=== PATIENT | male | born 1970 | race Caucasian/White ===

== ENCOUNTER 2022-08-01 08:32 | Outpatient (CLI) | payer BC, SELFPAY ==
--- NOTE | ~2022-08-01 | US_ITS ---
Abdominal Sonogram: Real-time sonographic imaging of the abdomen was performed. Clinical History: Abnormal blood chemistry findings Findings: The liver appears mildly echogenic, with no evidence of bile duct dilatation. There is a s omewhat ill-defined 3.1 x 2.9 x 3.1 cm hypoechoic area in the right hepatic lobe. Main portal vein de monstrates normal direction of flow. The spleen is normal in size without evidence of focal lesion. The gallbladder is well distended, and appears normal with no evidence of gallstone or wall thickenin g. The common bile duct measures 5 mm. The visualized pancreas, aorta, and IVC are unremarkable. Th e right kidney measures 11.0 cm in length and the left kidney measures 11.8 cm. There is no hydronep hrosis or renal calculus. Impression: Diffuse fatty infiltration of liver. 3 x 1 x 2.9 x 3.1 cm hypoechoic area probably represents fatty s paring. Pre and postcontrast MR could be considered to further confirm/better exclude mass lesion. Reviewed, dictated and finalized at location . Impression: Diffuse fatty infiltration of liver. 3 x 1 x 2.9 x 3.1 cm hypoechoic area proba nyasia represents fatty sparing. Pre and postcontrast MR could be considered to fu rther confirm/better exclude mass lesion.
== END 2022-08-01 08:33 | disposition home or self-care (01) ==
PROVIDERS: PCP Family Medicine; Visit Provider Physician Assistant Medical
DX: R79.89 Other specified abnormal findings of blood chemistry (principal); K76.0 Fatty (change of) liver, not elsewhere classified
CPT/HCPCS: 76700

== ENCOUNTER 2023-03-06 07:00 | Outpatient (NON) | payer BC, SELFPAY | END 2023-03-06 07:01 | disposition home or self-care (01) | LOC: ANHLAB 03-07 15:56 | PROVIDERS: PCP Family Medicine; Visit Provider Nurse Practitioner | DX: D22.5 Melanocytic nevi of trunk (principal) | CPT/HCPCS: 88305 ==

== ENCOUNTER 2024-03-29 | Emergency (ER) | payer OTHER, SELFPAY ==
[2024-03-29] VITALS (9 sets, daily range): BP systolic 119–153; BP diastolic 79–100; PULSE 66–94; RESP 13–20; TEMP 36.4–36.8; O2SAT 93–100
--- NOTE | ~2024-03-29 | US_ITS ---
EXAMINATION: US abdomen limited DATE: 03/29/2024 07:16 INDICATION: Abdominal pain. TECHNIQUE: Multiple grayscale and Doppler ultrasound images of the abdomen were obtained. COMPARISON: CT abdomen and pelvis 03/29/2024 FINDINGS: The visualized portions of the head and body of the pancreas are normal. There is diffuse h epatic steatosis. The gallbladder is normal in size and contains sludge. Gallbladder wall thickening is noted. There is no sonographic Villalobos's sign. The common duct is normal and measures 4 mm. IMPRESSION: 1. Normal-sized gallbladder with sludge, stone (seen by CT), and wall thickening, but no sonographic Villalobos's sign. These findings may be chronic cholecystitis. 2. Diffuse hepatic steatosis. Reviewed, dictated and finalized at location A. TANNER IMPRESSION: 1. Normal-sized gallbladder with sludge, stone (seen by CT), and wall thickenin g, but no sonographic Villalobos's sign. These findings may be chronic cholecystiti s. 2. Diffuse hepatic steatosis.
--- NOTE | ~2024-03-29 | CT_ITS ---
EXAMINATION: CT abdomen pelvis w con DATE: 03/29/2024 02:57 INDICATION: Abdominal pain. TECHNIQUE: Computed tomography (CT) of the abdomen and pelvis was performed with 100 mL Omnipaque 350 intravenous contrast. Automated exposure control and iterative reconstruction technique were employe d. The dose-length product was 863.95 mGy-cm. COMPARISON: Abdomen ultrasound 08/01/2022 FINDINGS: The visualized portions of the lung bases demonstrate mild atelectasis. No pleural effusion . The heart size is normal. No pericardial effusion. There is diffuse hepatic steatosis. There is a g allstone in the gallbladder, which is distended. The spleen, pancreas, adrenal glands, and kidneys ar e normal. The prostate is mildly enlarged. There is a left inguinal hernia containing fat. There is d iverticulosis of the colon without evidence of diverticulitis. There are changes of right hemicolecto my. There are no pathologically enlarged lymph nodes. There is no free intraperitoneal fluid. There i s a supraumbilical ventral hernia containing fat. There is mild lumbar spondylosis. IMPRESSION: 1. Distended gallbladder with gallstone suspicious for acute cholecystitis. 2. Diffuse hepatic steatosis. 3. Supraumbilical ventral hernia containing fat. 4. Left inguinal hernia containing fat. Reviewed, dictated and finalized at location A. DLE SANDER
[2024-03-29 01:30] LABS: Basophils Absolute Auto 0.1 K/mm3 (0.0-0.1); Basophils Percent Auto 0.3 % (0.2-1.2); Eosinophils Absolute Auto 0.2 K/mm3 (0-0.3); Eosinophils Percent Auto 1.2 % (0-4.4); Hematocrit 44.5 % (42.0-52.0); Hemoglobin 15.8 g/dL (14.0-18.0); Immature Granulocyte Absolute 0.06 K/mm3 (0.00-0.031); Immature Granulocyte Percent A 0.4 % (0-0.5); Lymphocytes Absolute Auto 1.54 K/mm3 (0.9-3.2); Lymphocytes Percent Auto 10.6 % (18.3-44.2); Mean Corpuscular HGB Conc 35.5 g/dl (32-36); Mean Corpuscular Hemoglobin 32.2 pg (26-34); Mean Corpuscular Volume 90.6 fl (80-100); Mean Platelet Volume 10.2 fl (7.4-10.4); Monocytes Absolute Auto 0.8 K/mm3 (0.1-0.6); Monocytes Percent Auto 5.8 % (2.6-8.5); Neutrophils Absolute Auto 11.8 K/mm3 (1.3-6.7); Neutrophils Percent Auto 81.7 % (45.5-73.1); Platelet Count Result 214 k/mm3 (150-375); Red Blood Count 4.91 M/mm3 (4.6-6.20); Red Cell Distribution Width 13.1 % (11.5-14.5); White Blood Count 14.5 K/mm3 (4.5-10.0)
[2024-03-29 01:40] LABS: Alanine Aminotransferase 40 U/L (6-50); Albumin Level 4.6 g/dL (3.5-5.1); Alkaline Phosphatase 88 U/L (38-126); Anion Gap 8 mmol/L (4-12); Aspartate Amino Transferase 30 U/L (17-59); Bilirubin,Total 1.4 mg/dL (0.2-1.3); Blood Urea Nitrogen 16 mg/dL (9-20); Calcium 9.6 mg/dL (8.4-10.2); Carbon Dioxide 29 mmol/L (22-30); Chloride 100 mmol/L (98-107); Estimated CRCL calculation 71 ml/min; Estimated Glomerular Filt Rate > 60; Glucose 135 mg/dL (65-110); Lipase 119 U/L (23-300); Potassium 3.7 mmol/L (3.4-5.0); Sodium 137 mmol/L (137-145)
[2024-03-29] MEDS: ONDANSETRON INJ 4 MG/2 ML VIAL IV PUSH (02:26)
[2024-03-29] MEDS: MORPHINE SULFATE (*CRX) 4 MG/ML INJ IV PUSH (02:26)
[2024-03-29] MEDS: SODIUM CHLORIDE 0.9% IV 1,000 ML 999 ML IV CONT (02:26)
[2024-03-29 02:34] LABS: Add Urine Microscopic? NO; Appearance Urine Clear (Clear); Bilirubin Urine Negative (Negative); Blood Urine Negative (Negative); Color Urine Yellow (Yellow); Glucose Urine UA Negative (Negative); Ketones Urine Negative (Negative); Leukocyte Esterase Ur Negative LEU/UL (Negative); Nitrate Urine Negative (Negative); Protein Urine Negative (Negative); Specific Grav Ur 1.015 (1.001-1.035); Urobilinogen Urine 0.2 mg/dL (<2.0); pH Urine 6.5 (5.0-9.0)
--- NOTE | 2024-03-29 03:40 | ED_ITS ---
HPI - General Adult General Chief complaint: Abdominal Pain <Hermes Emanuel MD - Last Filed: 03/29/24 03:41> Stated complaint: abd pain <Hermes Emanuel MD - Last Filed: 03/29/24 03:41> Time Seen by Provider: 03/29/24 02:07 <Hermes Emanuel MD - Last Filed: 03/29/24 03:41> History of Present Illness HPI narrative: patient 53-year-old gentleman who presents emergency department with chief complaint of abdominal pain. Patient reports started having epigastric pain this evening reports that he was concerned since he has had a prior episode of a perforated viscus and had emergency surgery with bowel resection. Patient states that he has had a bowel movement today reports that he has had some nausea <Hermes Emanuel MD - Last Filed: 03/29/24 03:41> Related Data Allergies/adverse reactions: Allergies Allergy/AdvReac Type Severity Reaction Status Date / Time No Known Allergies Allergy Verified 03/29/24 02:03 <Hermes Emanuel MD - Last Filed: 03/29/24 03:41> Review of Systems Review of Systems: A 10 system review of systems was completed on the patient and is negative except for what is stated in the HPI. Nursing and ancillary documentation was reviewed. <Hermes Emanuel MD - Last Filed: 03/29/24 03:41> PMFSH Past Medical History Medical History: Medical History BMI 29.0-29.9,adult BMI 30.0-30.9,adult Cerumen impaction Right otitis media <Hermes Emanuel MD - Last Filed: 03/29/24 03:41> Family History Family History: Family History Mother Family history of lung cancer Lung cancer Father Aortic aneurysm Sibling No problems noted. 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 HEAD: Normocephalic, atraumatic. EYES: PERRLA and EOMI. ENT: Nares clear, no rhinorrhea or epistaxis. Mucous membranes moist. NECK: Supple. CHEST: Clear to auscultation. No respiratory distress. HEART: Regular rate and rhythm. No murmur heard. Normal peripheral pulses. ABDOMEN: Soft, diffuse mild tenderness to palpation, nondistended, normal active bowel sounds. EXTREMITIES: Normal range of motion. No edema. SKIN: Warm, dry, no rash. NEURO: No focal deficits. Alert and oriented x3. PSYCH: Normal mood and affect. <Hermes Emanuel MD - Last Filed: 03/29/24 03:41> Course Course Emergency Course: Patient resting comfortably. Repeat exam shows he is pain free. Discussed imaging and lab results with both him and Dr. Rao with General surgery. Patient will be given oral pain control and nausea control for home. He will also be started on an oral antibiotic. He should follow up with General surgery on Sunday since he will be traveling on Sunday. Low-fat diet education given. <Kishan Chavarria MD - Last Filed: 03/29/24 08:01> Vital Signs Vital signs: Vital Signs Temperature 97.6 F 03/29/24 00:02 Pulse Rate 68 03/29/24 00:02 Respiratory Rate 14 03/29/24 00:02 Blood Pressure 144/100 H 03/29/24 00:02 Pulse Oximetry 100 03/29/24 00:02 Oxygen Delivery Room Air 03/29/24 00:02 Temperature 97.6 F 03/29/24 00:02 Pulse Rate 94 03/29/24 06:07 Respiratory Rate 17 03/29/24 06:07 Blood Pressure 121/79 03/29/24 06:07 Pulse Oximetry 93 03/29/24 06:07 Oxygen Delivery Room Air 03/29/24 00:02 <Hermes Emanuel MD - Last Filed: 03/29/24 03:41> Vital Signs Temperature 97.6 F 03/29/24 00:02 Pulse Rate 68 03/29/24 00:02 Respiratory Rate 14 03/29/24 00:02 Blood Pressure 144/100 H 03/29/24 00:02 Pulse Oximetry 100 03/29/24 00:02 Oxygen Delivery Room Air 03/29/24 00:02 Temperature 97.6 F 03/29/24 00:02 Pulse Rate 94 03/29/24 06:07 Respiratory Rate 17 03/29/24 06:07 Blood Pressure 121/79 03/29/24 06:07 Pulse Oximetry 93 03/29/24 06:07 Oxygen Delivery Room Air 03/29/24 00:02 <Kishan Chavarria MD - Last Filed: 03/29/24 08:01> Medical Decision Making Vital Signs Vital Signs: Vital Signs Temperature 97.6 F 03/29/24 00:02 Pulse Rate 68 03/29/24 00:02 Respiratory Rate 14 03/29/24 00:02 Blood Pressure 144/100 H 03/29/24 00:02 Pulse Oximetry 100 03/29/24 00:02 Oxygen Delivery Room Air 03/29/24 00:02 Temperature 97.6 F 03/29/24 00:02 Pulse Rate 94 03/29/24 06:07 Respiratory Rate 17 03/29/24 06:07 Blood Pressure 121/79 03/29/24 06:07 Pulse Oximetry 93 03/29/24 06:07 Oxygen Delivery Room Air 03/29/24 00:02 <Hermes Emanuel MD - Last Filed: 03/29/24 03:41> Vital Signs Temperature 97.6 F 03/29/24 00:02 Pulse Rate 68 03/29/24 00:02 Respiratory Rate 14 03/29/24 00:02 Blood Pressure 144/100 H 03/29/24 00:02 Pulse Oximetry 100 03/29/24 00:02 Oxygen Delivery Room Air 03/29/24 00:02 Temperature 97.6 F 03/29/24 00:02 Pulse Rate 94 03/29/24 06:07 Respiratory Rate 17 03/29/24 06:07 Blood Pressure 121/79 03/29/24 06:07 Pulse Oximetry 93 03/29/24 06:07 Oxygen Delivery Room Air 03/29/24 00:02 <Kishan Chavarria MD - Last Filed: 03/29/24 08:01> Lab Data Result diagrams: 03/29/24 01:07 03/29/24 01:07 <Hermes Emanuel MD - Last Filed: 03/29/24 03:41> Labs: Lab Results 03/29/24 03/29/24 Range/Units 01:07 02:27 WBC 14.5 H (4.5-10.0) K/mm3 RBC 4.91 (4.6-6.20) M/mm3 Hgb 15.8 (14.0-18.0) g/dL Hct 44.5 (42.0-52.0) % MCV 90.6 (80-100) fl MCH 32.2 (26-34) pg MCHC 35.5 (32-36) g/dl RDW 13.1 (11.5-14.5) % Plt Count 214 (150-375) k/mm3 MPV 10.2 (7.4-10.4) fl Immature Gran % (Auto) 0.4 (0-0.5) % Neut % (Auto) 81.7 H (45.5-73.1) % Lymph % (Auto) 10.6 L (18.3-44.2) % [place] % (Auto) 5.8 (2.6-8.5) % Eos % (Auto) 1.2 (0-4.4) % Baso % (Auto) 0.3 (0.2-1.2) % Lymph # (Auto) 1.54 (0.9-3.2) K/mm3 [place] # (Auto) 0.8 H (0.1-0.6) K/mm3 Eos # (Auto) 0.2 (0-0.3) K/mm3 Baso # (Auto) 0.1 (0.0-0.1) K/mm3 Abs Immat Gran (auto) 0.06 H (0.00-0.031) K/mm3 Absolute Neuts (auto) 11.8 H (1.3-6.7) K/mm3 Absolute Nucleated RBC 0.000 (0.0-0.012) K/mm3 Nucleated RBC % 0.0 (0.0-0.2) % Sodium 137 (137-145) mmol/L Potassium 3.7 (3.4-5.0) mmol/L Chloride 100 (98-107) mmol/L Carbon Dioxide 29 (22-30) mmol/L Anion Gap 8 (4-12) mmol/L BUN 16 (9-20) mg/dL Creatinine 1.10 (0.7-1.3) mg/dL Estim Creat Clear Calc 71 ml/min Estimated GFR > 60 (59 - ) Glucose 135 H (65-110) mg/dL Calcium 9.6 (8.4-10.2) mg/dL Total Bilirubin 1.4 H (0.2-1.3) mg/dL AST 30 (17-59) U/L ALT 40 (6-50) U/L Alkaline Phosphatase 88 (38-126) U/L Total Protein 8.0 (6.3-8.2) g/dL Albumin 4.6 (3.5-5.1) g/dL Lipase 119 (23-300) U/L Urine Color Yellow (Yellow) Urine Appearance Clear (Clear) Urine pH 6.5 (5.0-9.0) Ur Specific [place] 1.015 (1.001-1.035) Urine Protein Negative (Negative) mg/dL Urine Glucose (UA) Negative (Negative) mg/dL Urine Ketones Negative (Negative) mg/dL Ur Blood (Man) Negative (Negative) Urine Nitrate Negative (Negative) Urine Bilirubin Negative (Negative) Urine Urobilinogen 0.2 (<2.0) mg/dL Leukocyte Esterase Rfl Negative (Negative) MORENITA/UL <Hermes Emanuel MD - Last Filed: 03/29/24 03:41> Lab Results 03/29/24 03/29/24 Range/Units 01:07 02:27 WBC 14.5 H (4.5-10.0) K/mm3 RBC 4.91 (4.6-6.20) M/mm3 Hgb 15.8 (14.0-18.0) g/dL Hct 44.5 (42.0-52.0) % MCV 90.6 (80-100) fl MCH 32.2 (26-34) pg MCHC 35.5 (32-36) g/dl RDW 13.1 (11.5-14.5) % Plt Count 214 (150-375) k/mm3 MPV 10.2 (7.4-10.4) fl Immature Gran % (Auto) 0.4 (0-0.5) % Neut % (Auto) 81.7 H (45.5-73.1) % Lymph % (Auto) 10.6 L (18.3-44.2) % [place] % (Auto) 5.8 (2.6-8.5) % Eos % (Auto) 1.2 (0-4.4) % Baso % (Auto) 0.3 (0.2-1.2) % Lymph # (Auto) 1.54 (0.9-3.2) K/mm3 [place] # (Auto) 0.8 H (0.1-0.6) K/mm3 Eos # (Auto) 0.2 (0-0.3) K/mm3 Baso # (Auto) 0.1 (0.0-0.1) K/mm3 Abs Immat Gran (auto) 0.06 H (0.00-0.031) K/mm3 Absolute Neuts (auto) 11.8 H (1.3-6.7) K/mm3 Absolute Nucleated RBC 0.000 (0.0-0.012) K/mm3 Nucleated RBC % 0.0 (0.0-0.2) % Sodium 137 (137-145) mmol/L Potassium 3.7 (3.4-5.0) mmol/L Chloride 100 (98-107) mmol/L Carbon Dioxide 29 (22-30) mmol/L Anion Gap 8 (4-12) mmol/L BUN 16 (9-20) mg/dL Creatinine 1.10 (0.7-1.3) mg/dL Estim Creat Clear Calc 71 ml/min Estimated GFR > 60 (59 - ) Glucose 135 H (65-110) mg/dL Calcium 9.6 (8.4-10.2) mg/dL Total Bilirubin 1.4 H (0.2-1.3) mg/dL AST 30 (17-59) U/L ALT 40 (6-50) U/L Alkaline Phosphatase 88 (38-126) U/L Total Protein 8.0 (6.3-8.2) g/dL Albumin 4.6 (3.5-5.1) g/dL Lipase 119 (23-300) U/L Urine Color Yellow (Yellow) Urine Appearance Clear (Clear) Urine pH 6.5 (5.0-9.0) Ur Specific [place] 1.015 (1.001-1.035) Urine Protein Negative (Negative) mg/dL Urine Glucose (UA) Negative (Negative) mg/dL Urine Ketones Negative (Negative) mg/dL Ur Blood (Man) Negative (Negative) Urine Nitrate Negative (Negative) Urine Bilirubin Negative (Negative) Urine Urobilinogen 0.2 (<2.0) mg/dL Leukocyte Esterase Rfl Negative (Negative) MORENITA/UL <Kishan Chavarria MD - Last Filed: 03/29/24 08:01> Imaging Data Radiologist's impression: ITS Impressions Abdomen/Pelvis CT 03/29/24 05:59 IMPRESSION: 1. Distended gallbladder with gallstone suspicious for acute cholecystitis. 2. Diffuse hepatic steatosis. 3. Supraumbilical ventral hernia containing fat. 4. Left inguinal hernia containing fat. Abdomen Ultrasound 03/29/24 07:16 IMPRESSION: 1. Normal-sized gallbladder with sludge, stone (seen by CT), and wall thickening, but no sonographic Villalobos's sign. These findings may be chronic cholecystitis. 2. Diffuse hepatic steatosis. <Kishan Chavarria MD - Last Filed: 03/29/24 08:01> Discharge Plan Discharge Clinical Impression: Cholecystitis, chronic <Hermes Emanuel MD - Last Filed: 03/29/24 03:41> Patient Disposition: Home, Self-Care <Hermes Emanuel MD - Last Filed: 03/29/24 03:41> Condition: Stable <Hermes Emanuel MD - Last Filed: 03/29/24 03:41> Instructions: Cholecystitis (ED), Low Fat Diet (ED) <Hermes Emanuel MD - Last Filed: 03/29/24 03:41> Additional Instructions: Return to the emergency department if you develop severe abdominal pain, severe nausea and vomiting to the point where you are unable to keep down fluids, if you develop chest pain or difficulty breathing, blood in your stool, dizziness or fainting, or if you develop any other new or concerning symptoms as these could be signs of more serious medical illness. Try to stay well hydrated. Contact surgery office Sunday03/31/2024 to schedule follow- up appointment that day. <Hermes Emanuel MD - Last Filed: 03/29/24 03:41> Prescriptions: New hydrocodone-acetaminophen 5-325 mg tablet 1 tablet PO Q6H PRN (Reason: pain) Qty: 12 0RF ondansetron 4 mg tablet,disintegrating 4 mg PO Q6H PRN (Reason: nausea and vomiting) Qty: 10 0RF ciprofloxacin HCl 500 mg tablet 500 mg PO Q12H Qty: 14 0RF metronidazole 500 mg tablet 500 mg PO Q8H Qty: 21 0RF No Action colchicine 0.6 mg tablet 1.2 mg PO ONCE PRN (Reason: Gout) Qty: 15 1RF Rx Instructions: 1.2 mg at onset of gout flare, then 0.6 mg x 1 1 hr later. Max 1.8 mg total dose.Do not repeat for 3days allopurinol 100 mg tablet 100 mg PO DAILY Qty: 90 1RF <Hermes Emanuel MD - Last Filed: 03/29/24 03:41> Follow-up/Referrals: Damian Maier MD [Physician] - 2 Days Jordy Dee MD [Primary Care Provider] - <Hermes Emanuel MD - Last Filed: 03/29/24 03:41>
== END 2024-03-29 08:14 | disposition home or self-care (01) ==
PROVIDERS: Emergency Medicine; Emergency Provider Emergency Medicine; PCP Family Medicine
DX: K81.1 Chronic cholecystitis (principal); K76.0 Fatty (change of) liver, not elsewhere classified
CPT/HCPCS: 36415; 74177; 76705; 80053; 81003; 83690; 85025; 96361; 96374; 96375; 99284; J2270; J2405; J7030; Q9967

== ENCOUNTER 2024-04-25 13:26 | Outpatient (CLI) | payer OTHER, SELFPAY ==
--- NOTE | 2024-04-25 13:44 | ECG_ITS ---
Test Date: 2024-04-25 14:04:20 Measurements Intervals [place] Rate: 79 P: 30 [place]: 186 QRS: 51 QRSD: 88 T: 39 QT: 378 QTc: 435 Interpretive Statements SINUS RHYTHM No previous ECG available for comparison Electronically Signed On 04-25-2024 18:45:33 CREDIT RESOLUTION REPRESENTATIVE by Dominic Kapadia M.D.
[2024-04-25 14:12] LABS: Basophils Percent Auto 0.3 % (0.2-1.2); Eosinophils Absolute Auto 0.3 K/mm3 (0-0.3); Eosinophils Percent Auto 3.1 % (0-4.4); Hemoglobin 15.5 g/dL (14.0-18.0); Immature Granulocyte Absolute 0.09 K/mm3 (0.00-0.031); Lymphocytes Absolute Auto 2.47 K/mm3 (0.9-3.2); Lymphocytes Percent Auto 28.5 % (18.3-44.2); Mean Corpuscular HGB Conc 34.4 g/dl (32-36); Mean Corpuscular Hemoglobin 31.7 pg (26-34); Monocytes Absolute Auto 0.9 K/mm3 (0.1-0.6); Neutrophils Percent Auto 57.1 % (45.5-73.1); Platelet Count Result 225 k/mm3 (150-375); Red Blood Count 4.89 M/mm3 (4.6-6.20); Red Cell Distribution Width 12.6 % (11.5-14.5); White Blood Count 8.7 K/mm3 (4.5-10.0)
[2024-04-25 14:22] LABS: Alanine Aminotransferase 46 U/L (6-50); Albumin Level 4.1 g/dL (3.5-5.1); Alkaline Phosphatase 82 U/L (38-126); Amylase 66 U/L (30-110); Aspartate Amino Transferase 32 U/L (17-59); Bilirubin,Total 1.8 mg/dL (0.2-1.3); Lipase 120 U/L (23-300)
== END 2024-04-25 13:27 | disposition home or self-care (01) ==
LOC: ANHSURGERY 13:32
PROVIDERS: PCP Family Medicine; Visit Provider Surgery
DX: Z01.818 Encounter for other preprocedural examination (principal); K80.10 Calculus of gallbladder with chronic cholecystitis without obstruction
CPT/HCPCS: 36415; 80076; 82150; 83690; 85025; 93005

== ENCOUNTER 2024-04-29 00:53 | Day surgery (SDC) | payer OTHER, SELFPAY ==
[2024-04-23 12:58] VITALS: BMI 29.5
--- NOTE | 2024-04-23 13:04 | PC.NURSE ---
Report to the Outpatient Waiting Room, entrance under the green pavilion located off [facility], at time _1200_ on date _[id number]_. Planned Procedure Time: _2pm_.? Time changes happen often and if your time is changed the preop area will call you the afternoon before. - You and your visitor will be asked to self-screen and do not enter if you have any COVID symptoms. Please call surgeon if you need to reschedule. - A mask is optional within the hospital at this time. Patients may have clear liquids (water, carbonated beverages, clear teas, apple juice) until 3 hours prior to surgery with a maximum of 20 ounces. - No food from midnight until time of surgery and no smoking. This includes no chewing gum, candy or mints. Take only the following medications with a SIP of water on the morning of surgery: ___None DO NOT STOP ANY OF YOUR OTHER PRESCRIPTION MEDICATIONS PRIOR TO SURGERY EXCEPT THE FOLLOWING Medications to discontinue per physician ____None Please no make-up, nail irish, hairspray, perfume, deodorant, or body powder the day of surgery.? No jewelry (including any body piercings) or valuables the day of surgery, leave them at home.? Please take a shower or bath the night before, or the morning of, surgery with an antibacterial soap.? Wear comfortable, loose fitting clothing. - Jewelry must be removed prior to entering the operating room.? Rings and piercings that are not removed may be cut off. - The hospital will not accept responsibility for valuables.? - Please leave all valuables, including medications, at home the day of surgery. If you are going home after surgery, a licensed personal driver must drive you home.? - NO public transportation without another adult if you receive anesthesia. - We recommend that an adult stay with you for 24 hours following discharge. - We also recommend that you do not drive, make important decision, drink alcoholic beverages, or take any drugs that were not prescribed by your health care provider for at least 24 hours after your discharge time. Follow any additional instructions given to you from your surgeon. Telephone instructions given to _Nick__and asked if any additional questions and then verbalized understanding. Patient advised to call surgeon office or pre surgery nurse liaison [phone] if any additional questions.
[2024-04-29] VITALS (8 sets, daily range): BP systolic 114–133; BP diastolic 79–97; PULSE 61–98; RESP 11–17; TEMP 36.1–36.6; O2SAT 96–100
--- NOTE | 2024-04-29 10:54 | WPDHPUPDATE1 ---
History and Physical Update Update Date/Time: 04/29/24 10:54 History and Physical has been reviewed, including an updated exam of the patient. There are NO changes in the patient's condition. Risks, benefits, and alternatives have been discussed and questions answered. Patient agrees to proceed with procedure.
[2024-04-29] MEDS: LACTATED RINGERS 1,000 ML 30 ML IV CONT ×2 (12:30→16:16)
[2024-04-29] MEDS: ACETAMINOPHEN 500 MG TABLET 1000 MG PO (12:55)
[2024-04-29] MEDS: KETOROLAC 15 MG/ML VIAL (*BKC) IV PUSH (12:55)
--- NOTE | 2024-04-29 13:15 | WPDANESEPPF ---
Anes - Initial Pre Proc Eval Procedure: Operation Date: 04/29/24 14:30 Proposed Procedures p Laparoscopic Cholecystectomy - Damian Maier MD Date/Time: 04/29/24 13:15 Surgeon: Damian Maier MD Pre Op Diagnosis: Chr Cholecystitis with Stones Patient Data Age: 53 Gender: M Height: 1.75 m Weight: 90.9 kg Allergies Allergy/AdvReac Type Severity Reaction Status Date / Time No Known Allergies Allergy Verified 04/23/24 12:57 Home Medications ?Medication ?Instructions ?Recorded ?Confirmed ?Type colchicine 0.6 mg tablet 1.2 mg (2 x 0.6 mg) PO ONCE PRN 03/28/22 04/23/24 Rx Gout #15 tabs allopurinol 100 mg tablet 100 mg PO DAILY #90 tabs 03/12/24 04/23/24 Rx ketorolac 10 mg tablet 10 mg PO Q6H 4 days #16 tabs 04/29/24 Rx oxycodone-acetaminophen 5 mg-325 0.5 - 1 tablet PO Q4H PRN pain #10 04/29/24 Rx mg tablet (Percocet) tabs Patient hx anesthesia problems: none Family hx anesthesia problems: none Results Review: All pre-operative results and documents have been reviewed as part of the pre-operative evaluation. [facility] Past Medical History Medical History Gallbladder disorder Fatty liver BMI 29.0-29.9,adult BMI 30.0-30.9,adult Right otitis media Cerumen impaction Surgical History Surgical History History of bowel resection 2023 Family History Family History Mother Family history of lung cancer Lung cancer Father Aortic aneurysm Sibling No problems noted. Social History Social History Smoking status: Never smoker Second hand tobacco smoke exposure: No Alcohol intake: current Drinks per week: 5 Substance use: never Substance use type: does not use Lack of Transportation: No Lack of Food: Never True Current Housing: I Have Housing Concerned About Future Housing: No Difficulty Paying Gas/Electric Bills: No Difficulty Paying for Meds: No Currently Unemployed: No Education: Master's Degree or Higher Difficulty w/ Childcare or Family Care: No Living arrangements: with family Occupation/Education: occupation Additional occupation/education comments: financial services Gender identity (if verbalized by the patient): Male Spiritual care concerns: No Anes - Eval Final PreProcedure Day of Procedure 04/29/24 13:15 Patient weight: obese Heart: regular rate and rhythm Lungs: clear to auscultation Airway: Mallampati scale class 1 Neurological: alert and oriented Last oral intake: >/= 8 hours ASA classification: III Emergent: no Anesthetic plan: proceed Anesthesia type and monitoring: general ETT and standard monitoring Results Review: All pre-operative results and documents have been reviewed as part of the pre-operative evaluation. Informed Consent: The patient's anesthetic plan and its attendant risks and benefits were discussed with the patient/family/POA. Questions were solicited and answers provided to the satisfaction of the patient/family/POA.
[2024-04-29] MEDS: ceFAZolin 2 GM/D5W 50 ML 2 GM/50 ML BAG IVPB (15:14)
[2024-04-29] MEDS: BUPIVACAINE/EPINEPHRINE 0.5% 50 ML VIAL 30 ML INFILTRATE (15:36)
--- NOTE | 2024-04-29 16:13 | P.OP_ITS ---
Procedure Note - Detailed Date of Procedure 04/29/24 Pre-op Diagnosis Chronic cholecystitis, cholelithiasis Post-op Diagnosis Same Procedure Performed Laparoscopic cholecystectomy Surgeon Damian Maier MD Crystal Flat Grinder Benson VELASQUEZ Anesthesia General and Local Indications Patient is a 53-year-old man who has noticed postprandial right upper quadrant abdominal pain with nausea after fatty meals. His imaging showed gallstones and sludge. Is felt to have chronic cholecystitis with gallstones and is taken to surgery now for laparoscopic cholecystectomy Findings Chronic inflammation with gallbladder wall thickening, multiple small stones, no biliary ductal dilatation, no liver abnormalities Description of Procedure Patient was taken to surgery and induced into general anesthesia. The abdomen is prepped and draped. Trocars were placed in usual fashion using [employer] optical trocars and a 5 mm camera. The gallbladder was decompressed the laparoscopic aspirator. The cholecystotomy was closed with a Vicryl endoloop. The gallbladder was then retracted anterosuperiorly. The medial segment of the left lobe of the liver was obscuring the medial aspect of the gallbladder. A 5th 5 mm port was placed in the left mid abdomen. A blunt retractor was then used to retract the medial segment of the left lobe of the liver so that the medial wall of the gallbladder could be exposed. Dissection was carried out in the cholecystohepatic triangle. There was a lot of chronic inflammation and thickened gallbladder wall. The adhesions were taken down carefully. The cys tic duct and cystic artery were carefully dissected. The gallbladder was dissected off the liver at its lower 3rd so that only 2 structures were visible. Critical view was achieved. We then securely clipped the cystic duct and cystic artery. Both were then by. We continued our dissection freeing the gallbladder from the liver entirely. No entry into the gallbladder there was made. Once the gallbladder was free from the liver it was placed in an Endo- Catch bag and retrieved through the 10 11 epigastric trocar site. The epigastric trocar was then replaced. We reviewed the gallbladder fossa and the right upper quadrant. Irrigation and suctioning were carried out. Some additional cautery was used. All looked good with no evidence of bleeding or bile leakage. We then closed the fascia at the epigastric trocar site with a Bandar cone and an 0 Vicryl suture. We evacuated CO2 and removed the trocar sleeves. Skin wounds were closed with subcuticular 4-0 Monocryl skin suture. The wounds were dressed with Exofin surgical adhesive. Patient was awakened and taken to recovery in good condition. Sponge needle counts were correct x2. Estimated Blood Loss -5 Drains No Packing No Pathology Yes (Gallbladder) Complications None Condition Stable Disposition PACU [facility] Billing Surgery - Charge Forward: Surgery Billing (Laparoscopic cholecystectomy)
[2024-04-29] MEDS: fentaNYL CITRATE INJ (*CRX) 100 MCG/2 ML VIAL 25 MCG IV PUSH ×4 (16:51→17:07)
[2024-04-29] MEDS: oxyCODONE HCL (*CRX) 5 MG TAB IR PO (17:40)
== END 2024-04-29 18:08 | disposition home or self-care (01) ==
PROVIDERS: PCP Family Medicine; Visit Provider Surgery
PROC: 0FT44ZZ Resection of Gallbladder, Percutaneous Endoscopic Approach (ICD-10-PCS; CPT 47562; principal; 2024-04-29 14:30)
DX: K80.10 Calculus of gallbladder with chronic cholecystitis without obstruction (principal)
CPT/HCPCS: 47562; 88304; A9270; J0690; J1100; J1885; J2003; J2250; J2405; J2704; J3010; J7030; J7120

== ENCOUNTER 2024-06-04 10:06 | Outpatient (NON) | payer OTHER, SELFPAY ==
--- OUTSIDE RECORDS SUMMARY | 2024-06-05 23:05 | XMS_ITS | Clinical Summary ---
Author Organization [facility] Address [address] [place] [id number] Care Team Providers Care Inventory Accountant Name Role Phone Unavailable Primary Care Provider Unavailabl e Social History Tobacco Use Types Packs/Day Years Used Date Smoking Tobacco: Never Assessed Sex and Gender Information Value Date Recorded Sex Assigned at Not on file Legal Sex Male 9:46 AM CDT Gender Identity Not on file Sexual Orientation Not on file Plan of Treatment Health Maintenance Due Date Last Done Comments DTAP/TDAP/TD VACCINES (1 - Tdap) 12/22/1991 HEPATITIS B VACCINES (1 of 3 - 19+ 3-dose series) 12/22/1991 COLORECTAL SCREENING 2017 Colorectal Cancer Screening 2017 FIT-DNA Q 3 years 2017 FIT/FOBT Q 1 year 2017 Flex Sig/CT Colonography Q 5 years 2017 ZOSTER VACCINE (1 of 2) 2022 INFLUENZA VACCINE (#1) 2023 PNEUMOCOCCAL VACCINE 0-64 YEARS Aged Out No longer eligible based on patient's age to complete this topic Insurance [address] [address] [employer] CHO[employer]
== END 2024-06-04 10:07 | disposition home or self-care (01) ==
PROVIDERS: PCP Family Medicine; Visit Provider Pathology Anatomic Pathology & Clinical Pathology
DX: K80.10 Calculus of gallbladder with chronic cholecystitis without obstruction (principal)
CPT/HCPCS: 88321

== ENCOUNTER 2024-06-13 12:19 | Outpatient (CLI) | payer OTHER, SELFPAY ==
--- NOTE | ~2024-06-13 | XR_ITS ---
EXAMINATION: XR chest 2V DATE: 06/13/2024 15:20 INDICATION: Incisional hernia without obstruction or gangrene. TECHNIQUE: Frontal and lateral views of the chest were obtained. COMPARISON: CT abdomen and pelvis 03/29/2024 FINDINGS: There is no pneumonia, pleural effusion, or pneumothorax. The heart size is normal. Surgica l clips in the right upper quadrant are likely from cholecystectomy. IMPRESSION: 1. No acute cardiopulmonary disease. Reviewed, dictated and finalized at location A. 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
--- OUTSIDE RECORDS SUMMARY | 2024-06-13 12:22 | XMS_ITS | Clinical Summary ---
Author Organization [facility] Address [address] [place] [id number] Care Team Providers Care Recycling Sorter Name Role Phone Unavailable Primary Care Provider [...] patient's age to complete this topic [place] [address] [place] [address] [employer] CHOICE
--- NOTE | 2024-06-13 14:08 | ECG_ITS ---
Test Date: 2024-06-13 14:43:52 Measurements Intervals [place] Rate: 73 P: 36 WY: 185 QRS: 53 QRSD: 104 T: 42 QT: 356 QTc: 393 Interpretive Statements SINUS RHYTHM WITH SINUS ARRHYTHMIA EARLY REPOLARIZATION [ST ELEVATION WITH NORMALLY INFLECTED T WAVE] Compared to ECG 04/25/2024 14:04:20 Early repolarization now present Electronically Signed On 06-13-2024 14:50:00 BANANA LOADER by Cecelia Mccoy M.D.
[2024-06-13 14:58] LABS: Basophils Percent Auto 0.4 % (0.2-1.2); Eosinophils Absolute Auto 0.2 K/mm3 (0-0.3); Eosinophils Percent Auto 2.2 % (0-4.4); Hematocrit 44.9 % (42.0-52.0); Hemoglobin 15.4 g/dL (14.0-18.0); Immature Granulocyte Absolute 0.09 K/mm3 (0.00-0.031); Immature Granulocyte Percent A 1.1 % (0-0.5); Lymphocytes Absolute Auto 2.51 K/mm3 (0.9-3.2); Lymphocytes Percent Auto 30.1 % (18.3-44.2); Mean Corpuscular HGB Conc 34.3 g/dl (32-36); Mean Corpuscular Hemoglobin 31.4 pg (26-34); Mean Corpuscular Volume 91.6 fl (80-100); Mean Platelet Volume 10.1 fl (7.4-10.4); Monocytes Absolute Auto 0.8 K/mm3 (0.1-0.6); Monocytes Percent Auto 9.7 % (2.6-8.5); Neutrophils Absolute Auto 4.7 K/mm3 (1.3-6.7); Neutrophils Percent Auto 56.5 % (45.5-73.1); Platelet Count Result 232 k/mm3 (150-375); Red Cell Distribution Width 13.2 % (11.5-14.5); White Blood Count 8.4 K/mm3 (4.5-10.0)
[2024-06-13 15:06] LABS: Anion Gap 12 mmol/L (4-12); Blood Urea Nitrogen 16 mg/dL (9-20); Calcium 9.2 mg/dL (8.4-10.2); Carbon Dioxide 25 mmol/L (22-30); Chloride 101 mmol/L (98-107); Estimated Glomerular Filt Rate > 60; Glucose 91 mg/dL (65-110); Potassium 3.9 mmol/L (3.4-5.0); Sodium 138 mmol/L (137-145)
== END 2024-06-13 12:20 | disposition home or self-care (01) ==
PROVIDERS: PCP Family Medicine; Visit Provider Surgery
DX: I49.8 Other specified cardiac arrhythmias (principal); I49.49 Other premature depolarization; K43.2 Incisional hernia without obstruction or gangrene
CPT/HCPCS: 36415; 71046; 80048; 85025; 93005

== ENCOUNTER 2024-06-20 11:41 | Inpatient (IN) | payer OTHER, SELFPAY ==
[2024-06-10 13:30] VITALS: BMI 30.3
--- NOTE | 2024-06-10 13:35 | PC.NURSE ---
Report to the Outpatient Waiting Room, entrance under the green pavilion located off [facility], at time _1000_ on date _[id number]_. Planned Procedure Time: _1200_.? Time changes happen often and if your time is changed the preop area will call you the afternoon before. - You and your visitor will be asked to self-screen and do not enter if you have any COVID symptoms. Please call surgeon if you need to reschedule. - A mask is optional within the hospital at this time. Patients may have clear liquids (water, carbonated beverages, clear teas, apple juice) until 3 hours prior to surgery with a maximum of 20 ounces. - No food from midnight until time of surgery and no smoking. This includes no chewing gum, candy or mints. Take only the following medications with a SIP of water on the morning of surgery: ___None DO NOT STOP ANY OF YOUR OTHER PRESCRIPTION MEDICATIONS PRIOR TO SURGERY EXCEPT THE FOLLOWING Medications to discontinue per physician __None Date to take last dose Hold all vitamins and supplements for 3 days per anesthesiologist. Please no make-up, nail macanese, hairspray, perfume, deodorant, or body powder the day of surgery.? No jewelry (including any body piercings) or valuables the day of surgery, leave them at home.? Please take a shower or bath the night before, or the morning of, surgery with an antibacterial soap.? Wear comfortable, loose fitting clothing.? - Jewelry must be removed prior to entering the operating room.? Rings and piercings that are not removed may be cut off. - The hospital will not accept responsibility for valuables.? - Please leave all valuables, including medications, at home the day of surgery. If you are going home after surgery, a licensed milk truck driver must drive you home.? - NO public transportation without another adult if you receive anesthesia. - We recommend that an adult stay with you for 24 hours following discharge. - We also recommend that you do not drive, make important decision, drink alcoholic beverages, or take any drugs that were not prescribed by your health care provider for at least 24 hours after your discharge time. Follow any additional instructions given to you from your surgeon. Telephone instructions given to __Eddi___and asked if any additional questions and then verbalized understanding. Patient advised to call surgeon office or pre surgery nurse liaison [phone] if any additional questions.
[2024-06-19] VITALS (17 sets, daily range): BP systolic 62–122; BP diastolic 44–86; PULSE 62–96; RESP 12–18; TEMP 36.4–37; O2SAT 94–98
--- OUTSIDE RECORDS SUMMARY | 2024-06-19 00:20 | XMS_ITS | Clinical Summary ---
Author Organization [facility] Address [address] [place] [id number] Care Team Providers Care Public Opinion Survey Taker Name Role Phone Unavailable Primary Care Provider [...] patient's age to complete this topic Insurance [place] [place] [address] [employer] CHOICE
[2024-06-19] MEDS: ACETAMINOPHEN 500 MG TABLET 1000 MG PO (10:37)
[2024-06-19] MEDS: KETOROLAC 15 MG/ML VIAL (*BKC) IV PUSH (10:37)
[2024-06-19] MEDS: LACTATED RINGERS 1,000 ML 30 ML IV CONT ×4 (11:00→17:15)
--- NOTE | 2024-06-19 11:37 | P.PNAN_ITS ---
Anes - Initial Pre Proc Eval Procedure: Operation Date: 06/19/24 12:00 Proposed Procedures p Repair Incisional Hernia with Mesh Posterior Component Separation - Damian Maier MD Date/Time: 06/19/24 11:37 Surgeon: Damian Maier MD Pre Op Diagnosis: Incisional Ventral Hernia Patient Data Age: 53 Gender: M Height: 1.75 m Weight: 91.7 kg Last Vital Signs Temp 36.8 C 06/19/24 10:40 Pulse 94 06/19/24 10:40 Resp 16 06/19/24 10:40 BP 122/86 06/19/24 10:40 Pulse Ox 96 06/19/24 10:40 O2 Del Method Room Air 06/19/24 10:40 Allergies Allergy/AdvReac Type Severity Reaction Status Date / Time No Known Allergies Allergy Verified 06/10/24 13:29 Home Medications ?Medication ?Instructions ?Recorded ?Confirmed ?Type colchicine 0.6 mg tablet 1.2 mg (2 x 0.6 mg) PO ONCE PRN 03/28/22 06/19/24 Rx Gout #15 tabs allopurinol 100 mg tablet 100 mg PO DAILY #90 tabs 03/12/24 06/19/24 Rx sour kim extract 1,000 mg 1,000 mg PO DAILY 06/10/24 06/19/24 History capsule (Tart Kim Extract) Patient hx anesthesia problems: none Family hx anesthesia problems: none Results Review: All pre-operative results and documents have been reviewed as part of the pre- operative evaluation. [facility] Past Medical History Medical History Gallbladder disorder Fatty liver BMI 29.0-29.9,adult BMI 30.0-30.9,adult Right otitis media Cerumen impaction Surgical History Surgical History Hx laparoscopic cholecystectomy 04/29/[address] Maier History of bowel resection 2023 Family History Family History Mother Family history of lung cancer Lung cancer Father Aortic aneurysm Sibling No problems noted. Social History Social History Smoking status: Never smoker Second hand tobacco smoke exposure: No Alcohol intake: current Drinks per week: 5 Substance use: never Substance use type: does not use Do You Feel Safe in your Home?: Yes Lack of Transportation: No Lack of Food: Never True Current Housing: I Have Housing Concerned About Future Housing: No Difficulty Paying Gas/Electric Bills: No Difficulty Paying for Meds: No Currently Unemployed: No Education: Master's Degree or Higher Difficulty w/ Childcare or Family Care: No Living arrangements: with family Occupation/Education: occupation Additional occupation/education comments: financial services Gender identity (if verbalized by the patient): Male Spiritual care concerns: No Anes - Eval Final PreProcedure Day of Procedure 06/19/24 11:37 Patient weight: overweight Heart: regular rate and rhythm Lungs: clear to auscultation Airway: Mallampati scale class II Neurological: alert and oriented Last oral intake: >/= 8 hours ASA classification: II Emergent: no Anesthetic plan: proceed Anesthesia type and monitoring: general ETT and standard monitoring Results Review: All pre-operative results and documents have been reviewed as part of the pre- operative evaluation. Informed Consent: The patient's anesthetic plan and its attendant risks and benefits were discussed with the patient/family/POA. Questions were solicited and answers provided to the satisfaction of the patient/family/POA.
--- NOTE | 2024-06-19 12:00 | WPDHPUPDATE1 ---
History and Physical Update Update Date/Time: 06/19/24 12:00 History and Physical has been reviewed, including an updated exam of the patient. There are NO changes in the patient's condition. Risks, benefits, and alternatives have been discussed and questions answered. Patient agrees to proceed with procedure.
[2024-06-19] MEDS: ceFAZolin 2 GM/D5W 50 ML 2 GM/50 ML BAG IVPB (12:09)
[2024-06-19] MEDS: PHENYLEPHRINE 1,000 MCG/10 ML SYRINGE 100 MCG IV PUSH ×5 (16:15→16:19)
[2024-06-19] MEDS: fentaNYL CITRATE INJ (*CRX) 100 MCG/2 ML VIAL 25 MCG IV PUSH ×8 (16:37→18:01)
--- NOTE | 2024-06-19 16:42 | P.OP_ITS ---
Procedure Note - Detailed Date of Procedure 06/19/24 Pre-op Diagnosis Incisional Ventral Hernia with over 15 cm length of defect Post-op Diagnosis Same Procedure Performed Incisional hernia repair with mesh, bilateral transversus abdominis myofascial flap advancement, 6 cm on the right, 4 cm on the left. Surgeon Damian Maier MD Suggestion Clerk Miguel VELASQUEZ Anesthesia General Indications Patient is a 53-year-old man who previously had a ileocolic resection at a hospital in the [facility] for an inflammatory process. I saw him in March for cholecystitis. He had noticed a hernia at that time but it was not particularly bothersome. CT scan done in March was reviewed and showed multiple abdominal wall defects from above his previous incision scar down to and below the umbilicus. Measuring by CT scan this was 15-16 cm in length. He was having some pain associated with this and is taken to surgery now for repair. Findings Multiple abdominal wall defects with about 3 actual hernias in the area of the old scar. He also had a diastasis and lateralization of both rectus muscles. Flap advancement was required and was approximately 6 cm on the right and 4 cm on the left accomplished by transversus abdominis release. The length of the area with hernia defects was at least 15 cm. Description of Procedure Patient was taken to surgery and induced into general anesthesia. Gasca catheter was placed. The entire abdomen was prepped and draped. The scar from his previous bowel resection was completely excised. It was discarded. He had quite a bit of small vessel oozing in the subdermal and subcutaneous areas. Cautery was used for hemostasis. We then dissected through the subcutaneous and encountered the midline fascia. The fascia was carefully opened. At least 3 hernia defects were found. These were opened as was the midline fascia the length of the wound. Fortunately there were no anterior abdominal wall adhesions to speak of. A blue towel was placed in the abdomen to quarantine the viscera from the anterior abdominal wall. We began our dissection starting on the patient's left side. The posterior rectus fascia was opened very near the midline. We then carefully dissected the posterior rectus fascia dividing it near the midline the length of the wound. Gentle traction was then placed on the posterior rectus fascia and the rectus muscle was carefully dissected off the fascia. This was more bloody than usual as well due to small vessel bleeding. As mentioned above, the rectus muscle was pretty far lateralized and as the patient had a significant diastasis. None the less we dissected to the lateral aspect of the rectus muscle avoiding the inferior epigastric vessels and leaving them attached to the rectus muscle. We then continued the dissection of the posterior rectus fascia cephalad. The posterior rectus was divided medially up to nearly the area of the xiphoid process. Some dissection across the midline was carried out as well. We then elevated the left upper quadrant and continued dissection of the rectus muscle from the posterior rectus fascia up into the left upper abdomen eventually encountering the costal margin. We then turned and continued this process toward the pubis this. We traversed the semicircular line and then continued a dissection plane dividing the peritoneum from the left rectus muscle and then entering a plane in the retropubic space. I was able to cross over to the midline sign in the retropubic space. All looked good although there was more oozing of blood than is typically seen. We then exposed the left upper quadrant and transversus abdominis release was started. I started just below the left costal margin. The transversus muscle was elevated on a right angle and the 1st anesthesiologist assistant certified divided the muscle between. This process was CT continued both lateral and medial until the transversus had divided and we could create a plane just deep to the sternum and xiphoid process. Dissection was carried up beyond the xiphoid process under the lower sternum. We then went back to the transverse this release and continued the release from cephalad add to caudad. We took care to avoid the neuro muscular bundles at the lateral aspect of the rectus muscle. The transversus was carefully divided down to the semicircular line and then beyond the semicircular line where there was only peritoneum. Along the longitudinal path from cephalad to caudad, I carefully dissected the lateral aspect of the transversus release further lateral entering the plane deep to the transversus muscle. This dissection plane was carried out far laterally the length of the entire abdomen. Retroperitoneal fat and some of the bones of the spine were palpable. When this was completed, there were 2 or 3 small holes in the peritoneum. Each of these were closed with interrupted 3-0 Vicryl. Laparotomy sponges were placed over the dissection plane and I checked for hemostasis. Some additional cautery was used and hemostasis was felt to be adequate. I then went to the patient's left side. In similar fashion we found the medial edge of the posterior rectus fascia and divided this exposing the medial aspect of the right rectus muscle. Similarly, we divided the posterior rectus fascia cephalad and caudad the length of the wound. The posterior rectus sheath was then carefully dissected away from the right rectus muscle. We dissected all the way to the lateral most extent of the right rectus. We then elevated the abdominal wall cephalad and I was able to develop a plane and continued the division of the posterior rectus sheath from the right rectus muscle up to the area of the xiphoid process and our previously created plane under the xiphoid and sternum. We crossed in the subcutaneous from the patient's right to the open area on his left. Again there was more oozing than usual but with cautery and pressure this was controlled. I also divided the posterior rectus fascia medially towards the pubis and passed below the semicircular line. I was able to enter the retropubic plane that had been developed during the left-sided dissection. We then went back to the right-sided costal margin and began the dissection of the transversus muscle there. A transversus was divided both laterally and medially to communicate with the previous dissection and create a space under the sternum for the mesh placement. The transversus release was then continued from cephalad to caudad dividing the transversus over a clamp as it was dissected. Care was taken to avoid the neuro vascular bundles as had been done on the patient's left side. We also pushed the lateral aspect of the transversus more laterally entering the tissue plane deep to the transversus. This was continued from cephalad to caudad and eventually this dissection proceeded laterally and posteriorly as it had on the patient's left side. Retroperitoneal fat and spine were palpable. As we were creating this space on the patient's right, an arterial branch of the external iliac began bleeding. This was posterior to the external iliac and difficult to expose. Eventually it was exposed and clamped. It was ligated with a 3-0 Vicryl tie. Some smaller veins in the area were also cauterized and hemostasis was achieved. This did result in the most blood loss of the surgery, probably 100 cc. This area was checked and re checked and looked good with no evidence of persistent bleeding and no injury to the external iliac artery. A final recheck of the entire retro rectus and transversus dissection was carried out. All looked good. We removed the blue towel and then closed the posterior rectus fascia with bidirectional running 0 Vicryl suture. Soft polypropylene mesh was then placed in the retro rectus space in georgina fashion. The upper tip extending beyond the xiphoid in the midline. The lateral edges lay flat due to the extent of the dissection. Unfortunately the lower tip of the mesh did not come down to the pubis. A 2nd piece of extra-large soft polypropylene mesh was then placed in georgina fashion pretty much over the 1st but with the lower most aspect extending beyond the pubis to cover the lower abdomen adequately. Both pieces of mesh lay flat and in good position. I then placed a 19 Jose drain in the retrorectus space and brought it out through left lower quadrant tr ocar site. The drain was sutured to the skin with 2-0 silk. We then closed the midline fascia with bidirectional running 1. PDS suture. The subcutaneous was closed with interrupted 3-0 Vicryl suture. The skin was loosely approximated with subcuticular interrupted 3-0 and 4-0 Vicryl suture. The wound was dressed with Xeroform gauze, fluffs, ABDs, and Medipore tape. Patient was then awakened and extubated. He was transferred to recovery in good condition. Sponge and needle counts were correct x2. Implants Two pieces of extra-large, 12 in x 12 in, soft polypropylene mesh. Placed in the retrorectus space Estimated Blood Loss -250 Drains Yes (Retro rectus 19 Jordanian Jose drain, Gasca catheter) Packing No Pathology None sent Complications None Condition Stable Disposition PACU [facility] Billing Surgery - Charge Forward: Surgery Billing (Incisional hernia repair with mesh, bilateral transversus abdominis myofascial flap advancement, 6 cm on the right, 4 cm on the left.)
--- NOTE | 2024-06-19 18:17 | ADMGEN ---
This patient, Eddi Corrales, was admitted to 2 Medical Room 242-01. Patient/family oriented to hospital policies and general routines including ID bracelet, bed and alarms, visiting hours, pain management, procedures, bathroom and other care routines, personal items, smoking policy, room service/diet, and visiting hours. Information on how to activate the Rapid Response Team has been discussed. Patient/Family are encouraged to report perceived risks to care and to ask questions if they do not understand what they are told or what they should do.
[2024-06-19] MEDS: IBUPROFEN IV 800 MG/200 ML 800 MG/200 ML BAG 400 MG IVPB (18:35)
[2024-06-19] MEDS: oxyCODONE/ACETAMINOPHEN (*CRX) 10-325 MG TABLET 1 TAB PO (18:36)
[2024-06-19] MEDS: KCL 20 MEQ/D5/0.9% SOD CHL 1,000 ML 125 ML IV CONT (18:36)
[2024-06-19] MEDS: FAMOTIDINE 20 MG/2 ML VIAL IV PUSH (20:32)
[2024-06-19] MEDS: ONDANSETRON INJ 4 MG/2 ML VIAL IV PUSH (22:34)
--- NOTE | ~2024-06-20 | XR_ITS ---
EXAMINATION: XR abdomen/kub 1V DATE: 06/22/2024 10:43 INDICATION: Stomach irritation. Recent surgery with nausea. TECHNIQUE: A supine view of the abdomen on 2 radiographs was obtained. COMPARISON: CT dated 03/29/2024 FINDINGS: Cholecystectomy clips in right upper quadrant. Left lower quadrant surgical drainage catheter looped cephalad over the abdomen with distal tip in the right hemipelvis. There are multiple gas-filled but not frankly dilated loops of small bowel most likely post operative ileus. IMPRESSION: 1. Likely postoperative ileus. Reviewed, dictated and finalized at location A. PERCHER
[2024-06-20 00:16] VITALS: BP 98/61; PULSE 68; RESP 16; TEMP 36.9; O2SAT 93
[2024-06-20] MEDS: IBUPROFEN IV 800 MG/200 ML 800 MG/200 ML BAG 400 MG IVPB ×2 (00:16→05:56)
[2024-06-20] MEDS: KCL 20 MEQ/D5/0.9% SOD CHL 1,000 ML 125 ML IV CONT (02:38)
[2024-06-20 05:24] VITALS: BP 93/56; PULSE 92; RESP 16; TEMP 36.7; O2SAT 98
[2024-06-20 06:14] LABS: Hematocrit 36.1 % (42.0-52.0); Mean Corpuscular HGB Conc 33.2 g/dl (32-36); Mean Corpuscular Hemoglobin 31.1 pg (26-34); Mean Corpuscular Volume 93.5 fl (80-100); Platelet Count Result 213 k/mm3 (150-375); Red Blood Count 3.86 M/mm3 (4.6-6.20); Red Cell Distribution Width 13.2 % (11.5-14.5); White Blood Count 14.7 K/mm3 (4.5-10.0)
[2024-06-20 06:33] LABS: Anion Gap 6 mmol/L (4-12); Blood Urea Nitrogen 14 mg/dL (9-20); Calcium 7.9 mg/dL (8.4-10.2); Carbon Dioxide 29 mmol/L (22-30); Chloride 102 mmol/L (98-107); Estimated CRCL calculation 82 ml/min; Estimated Glomerular Filt Rate > 60; Glucose 115 mg/dL (65-110); Potassium 4.3 mmol/L (3.4-5.0); Sodium 137 mmol/L (137-145)
[2024-06-20 07:53] VITALS: BP 114/67; PULSE 93; RESP 18; TEMP 36.2; O2SAT 97
--- NOTE | 2024-06-20 08:13 | WPDANESPN ---
Anes - Prog Note Post-Op Date/Time: 06/20/24 08:13 Cardiovascular status: normal Respiratory status: normal Airway patency: baseline Mental status: baseline Post-Op hydration status: normal Vital Signs: Last Vital Signs Temp 97.1 F L 06/20/24 07:53 Pulse 93 06/20/24 07:53 Resp 18 06/20/24 07:53 BP 114/67 06/20/24 07:53 Pulse Ox 97 06/20/24 07:53 O2 Del Method Nasal Cannula 06/19/24 20:30 O2 Flow Rate 2 06/19/24 20:30 Pain Score (VAS): 0 I/O: Intake & Output 06/19/24 06/20/24 06/20/24 23:59 07:59 15:59 Intake Total 1950 1550 Output Total 195 710 Balance 1755 840 Laboratory Tests 06/20/24 05:28 06/20/24 05:28 06/20/24 05:28 WBC 14.7 H RBC 3.86 L Hgb 12.0 L D Hct 36.1 L MCV 93.5 MCH 31.1 MCHC 33.2 RDW 13.2 Plt Count 213 MPV 10.0 Sodium 137 Potassium 4.3 Chloride 102 Carbon Dioxide 29 Anion Gap 6 BUN 14 Creatinine 0.94 Estim Creat Clear Calc 82 Estimated GFR > 60 Glucose 115 H Calcium 7.9 L Post-procedural complaints: none Patient Feedback: Patient satisfied with anesthetic care.
[2024-06-20] MEDS: ENOXAPARIN 40 MG/0.4 ML SYRINGE SUB-Q (08:47)
[2024-06-20] MEDS: FAMOTIDINE 20 MG/2 ML VIAL IV PUSH (08:47)
[2024-06-20] MEDS: allopurinoL 100 MG TABLET PO (08:47)
[2024-06-20] MEDS: oxyCODONE/ACETAMINOPHEN (*CRX) 5-325 MG TABLET 1 TABLET PO ×2 (08:47→12:23)
--- NOTE | 2024-06-20 11:04 | P.PNGS_ITS ---
Progress Note: A&P Assessment and Plan (1) Incisional hernia without obstruction or gangrene: Code(s): K43.2 - Incisional hernia without obstruction or gangrene Status: Chronic Assessment and Plan: doing well postop day 1. Continue to follow hemoglobin and hematocrit as there was a drop from hemoglobin of 15 to 12 following surgery. EBL was 250 cc. Doubt patient will require transfusion. Decrease in hemoglobin and hematocrit also due to dilutional affects in addition to intraoperative losses. Leave G[place]a catheter today but DC tomorrow. Up in chair and up in room today. Low- fiber diet. Start dressing changes tomorrow. Patient doing well. Pain controlled with current analgesics regimen. Subjective Subjective Date/Time Seen: 06/20/24 11:04 Post Op day: 1 Patient reports: still having pain, tolerating liquids well, no flatus, no bowel movement and afebrile Exam Const: General: comfortable, no acute distress, alert and awake Nutritional Appearance: average body habitus Orientation/consciousness: patient oriented x3 GI: Inspection: non-distended, incision ( dressing dry and intact, MARCO mostly sanguinous) and scaphoid GI Palp: Yes Soft to palpation, Yes Tenderness to palpation present (GI) ( appropriate incisional tenderness), No Guarding due to palpation present (GI) and No Rebound tenderness present Neuro: General: patient oriented x3 and no focal motor deficits Extrem: General: no calf tenderness and no edema Psych: Affect: normal affect Insight: Good insight present (Psych) Judgement: Good judgement present (Psych) Objective Data Vital Signs Vital Signs: Vital Signs - 24 hr 06/19/24 16:09 06/19/24 16:15 06/19/24 16:20 Temperature 37.0 C Pulse Rate 70 77 79 Respiratory Rate 16 18 16 Blood Pressure 65/46 L 62/44 L 87/58 L Pulse Oximetry 95 94 94 Oxygen Delivery Simple Face Mask Simple Face Mask Simple Face Mask Oxygen Flow Rate 6 6 6 06/19/24 16:25 06/19/24 16:35 06/19/24 16:50 Temperature Pulse Rate 82 85 84 Respiratory Rate 16 18 14 Blood Pressure 108/65 107/70 111/73 Pulse Oximetry 95 96 96 Oxygen Delivery Simple Face Mask Simple Face Mask Nasal Cannula Oxygen Flow Rate 6 6 2 06/19/24 17:05 06/19/24 17:20 06/19/24 17:35 Temperature Pulse Rate 96 91 94 Respiratory Rate 14 12 15 Blood Pressure 108/69 108/82 105/75 Pulse Oximetry 96 96 Oxygen Delivery Nasal Cannula Nasal Cannula Nasal Cannula Oxygen Flow Rate 2 2 2 06/19/24 17:50 06/19/24 18:20 06/19/24 18:30 Temperature 36.4 C 36.9 C Pulse Rate 93 87 Respiratory Rate 17 16 Blood Pressure 113/78 106/68 Pulse Oximetry 96 96 96 Oxygen Delivery Nasal Cannula Nasal Cannula Oxygen Flow Rate 2 2 06/19/24 18:35 06/19/24 19:05 06/19/24 20:08 Temperature 36.9 C 36.9 C 36.6 C Pulse Rate 86 85 62 Respiratory Rate 16 16 16 Blood Pressure 103/67 110/74 100/65 Pulse Oximetry 97 98 97 Oxygen Delivery Oxygen Flow Rate 06/19/24 20:30 06/20/24 00:16 06/20/24 05:24 Temperature 36.9 C 36.7 C Pulse Rate 62 68 92 Respiratory Rate 16 16 16 Blood Pressure 98/61 L 93/56 L Pulse Oximetry 97 93 98 Oxygen Delivery Nasal Cannula Oxygen Flow Rate 2 06/20/24 07:53 06/20/24 08:45 Temperature 36.2 C L Pulse Rate 93 Respiratory Rate 18 Blood Pressure 114/67 Pulse Oximetry 97 Oxygen Delivery Room Air Oxygen Flow Rate Intake/Output Intake/Output: Intake & Output 06/17/24 06/18/24 06/19/24 06/20/24 23:59 23:59 23:59 23:59 Intake Total 1999 1989 Output Total 195 710 Balance 1805 1280 Meds/Results Medications: Active Medications Generic Name Dose Route Start Last Admin Trade Name Freq PRN Reason Stop Dose Admin Acetaminophen 500 mg 06/19/24 18:08 Acetaminophen 500 Mg Tablet PO Q6H PRN Pain Rated 1-3 Allopurinol 100 mg 06/20/24 09:00 06/20/24 08:47 Allopurinol 100 Mg Tablet PO 100 mg DAILY SHY Administration Colchicine 0.6 - 1.2 mg 06/19/24 18:08 Colchicine 0.6 Mg Tablet PO PRN PRN Gout Enoxaparin Sodium 40 mg 06/20/24 09:00 06/20/24 08:47 Enoxaparin 40 Mg/0.4 Ml Syringe SUB-Q 40 mg DAILY SHY Administration Famotidine 20 mg 06/20/24 21:00 Famotidine 20 Mg Tablet PO Q12HR SHY Ibuprofen 800 mg in 200 mls @ 400 mls/hr 06/19/24 18:00 06/20/24 07:00 Caldolor 800 Mg/200 Ml IVPB 06/21/24 08:00 Infused Q6H SHY Infusion Potassium Chloride/Dextrose/Sod Cl 1,000 mls @ 80 mls/hr 06/19/24 18:08 06/20/24 02:38 Kcl 20 Meq/D5/0.9% Sod Chl IV CONT 125 mls/hr .[id number] SHY Administration Ibuprofen 800 mg in 200 mls @ 400 mls/hr 06/21/24 06:00 Caldolor 800 Mg/200 Ml IVPB Q6H PRN Pain Rated 1-3 Morphine Sulfate 2 mg 06/19/24 18:08 Morphine Sulfate (*Crx) 2 Mg/Ml Inj IV PUSH Q2H PRN Breakthrough Pain Rated 4-6 or NPO Morphine Sulfate 4 mg 06/19/24 18:08 Morphine Sulfate (*Crx) 4 Mg/Ml Inj IV PUSH Q2H PRN Breakthrough Pain Rated 7-10 or NPO Naloxone HCl 0.1 mg 06/19/24 18:08 Naloxone Hcl 0.4 Mg/Ml Vial IV PUSH Q2M PRN Opiate Reversal Ondansetron HCl 4 mg 06/19/24 18:08 06/19/24 22:34 Ondansetron Inj 4 Mg/2 Ml Vial IV PUSH 4 mg Q4H PRN Administration Nausea And Vomiting Oxycodone/Acetaminophen 1 tablet 06/19/24 18:08 06/20/24 08:47 Oxycodone/Acetaminophen (*Crx) 5-325 Mg Tablet PO 1 tablet Q4H PRN Administration Pain Rated 4-6 Oxycodone/Acetaminophen 1 tab 06/19/24 18:08 06/19/24 18:36 Oxycodone/Acetaminophen (*Crx) 10-325 Mg Tablet PO 1 tab Q6H PRN Administration Pain Rated 7-10 Polyethylene Glycol 17 gm 06/21/24 09:00 Polyethylene Glycol 3350 17 Gm Powd.Pack PO QAM SHY Polyethylene Glycol 17 gm 06/20/24 10:58 Polyethylene Glycol 3350 17 Gm Powd.Pack PO 06/20/24 10:59 ONCE ONE Senna/Docusate Sodium 2 tab 06/20/24 21:00 Senna/Docusate Sodium Tablet PO HS SHY Labs Labs: Laboratory Results - last 24 hr 06/20/24 05:28 WBC 14.7 H RBC 3.86 L Hgb 12.0 L D Hct 36.1 L MCV 93.5 MCH 31.1 MCHC 33.2 RDW 13.2 Plt Count 213 MPV 10.0 Sodium 137 Potassium 4.3 Chloride 102 Carbon Dioxide 29 Anion Gap 6 BUN 14 Creatinine 0.94 Estim Creat Clear Calc 82 Estimated GFR > 60 Glucose 115 H Calcium 7.9 L
[2024-06-20] MEDS: KCL 20 MEQ/D5/0.9% SOD CHL 1,000 ML 80 ML IV CONT (11:08)
[2024-06-20 11:53] VITALS: BP 117/74; PULSE 106; RESP 20; TEMP 37.2; O2SAT 96
[2024-06-20] MEDS: IBUPROFEN IV 800 MG/200 ML 800 MG/200 ML BAG 200 MG IVPB ×2 (12:05→17:28)
[2024-06-20] MEDS: polyethylene glycoL 3350 17 GM POWD.PACK PO (12:05)
[2024-06-20 15:53] VITALS: BP 111/62; PULSE 91; RESP 18; TEMP 36.9; O2SAT 96
[2024-06-20 20:44] VITALS: BP 109/59; PULSE 94; RESP 16; TEMP 36.6; O2SAT 96
[2024-06-20] MEDS: FAMOTIDINE 20 MG TABLET PO (21:11)
[2024-06-20] MEDS: SENNA/DOCUSATE SODIUM TABLET 2 TAB PO (21:11)
[2024-06-21] MEDS: IBUPROFEN IV 800 MG/200 ML 800 MG/200 ML BAG 200 MG IVPB ×2 (00:02→06:07)
[2024-06-21] MEDS: KCL 20 MEQ/D5/0.9% SOD CHL 1,000 ML 80 ML IV CONT (03:00)
[2024-06-21 05:11] VITALS: BP 110/69; PULSE 98; RESP 16; TEMP 36.7; O2SAT 95
[2024-06-21 05:35] LABS: Hematocrit 33.3 % (42.0-52.0); Hemoglobin 11.1 g/dL (14.0-18.0); Mean Corpuscular HGB Conc 33.3 g/dl (32-36); Mean Corpuscular Hemoglobin 31.3 pg (26-34); Mean Corpuscular Volume 93.8 fl (80-100); Mean Platelet Volume 10.2 fl (7.4-10.4); Platelet Count Result 194 k/mm3 (150-375); Red Blood Count 3.55 M/mm3 (4.6-6.20); Red Cell Distribution Width 13.4 % (11.5-14.5); White Blood Count 11.7 K/mm3 (4.5-10.0)
[2024-06-21 05:52] LABS: Anion Gap 4 mmol/L (4-12); Blood Urea Nitrogen 10 mg/dL (9-20); Calcium 8.1 mg/dL (8.4-10.2); Carbon Dioxide 28 mmol/L (22-30); Chloride 105 mmol/L (98-107); Estimated CRCL calculation 85 ml/min; Estimated Glomerular Filt Rate > 60; Glucose 105 mg/dL (65-110); Potassium 3.8 mmol/L (3.4-5.0); Sodium 137 mmol/L (137-145)
[2024-06-21] MEDS: oxyCODONE/ACETAMINOPHEN (*CRX) 5-325 MG TABLET 1 TABLET PO (06:06)
[2024-06-21] MEDS: allopurinoL 100 MG TABLET PO (09:16)
[2024-06-21] MEDS: FAMOTIDINE 20 MG TABLET PO ×2 (09:16→20:13)
[2024-06-21] MEDS: polyethylene glycoL 3350 17 GM POWD.PACK PO (09:16)
[2024-06-21] MEDS: ENOXAPARIN 40 MG/0.4 ML SYRINGE SUB-Q (09:16)
[2024-06-21 12:00] VITALS: BP 135/89; PULSE 89; RESP 20; TEMP 37.1; O2SAT 96
[2024-06-21] MEDS: ONDANSETRON INJ 4 MG/2 ML VIAL IV PUSH ×3 (12:14→22:21)
--- NOTE | 2024-06-21 13:08 | WPDPN ---
Progress Note: A&P Assessment and Plan (1) Incisional hernia without obstruction or gangrene: Code(s): K43.2 - Incisional hernia without obstruction or gangrene Status: Chronic Assessment and Plan: Patient doing well with incisional hernia repair posterior component separation and placement of retrorectus mesh. Drain output is still pretty bloody output is still too high to remove the drain. Will leave the drain in over the weekend. Pain is well controlled on the current pain management regimen. Continue walking the hallways. Hemoglobin is right around 11. Will follow but it does not appear that he is losing enough blood to need a blood transfusion. Subjective Date/time seen: 06/21/24 13:08 Interval history: Patient is doing pretty well. He has been up walking the hallways. Pain seems to be under will good control with current pain management regimen. Tolerating regular diet. Vital signs are stable. Exam GI: Other: Abdomen is soft and nondistended. Midline incision is dressed. Dressing is dry. Left lower quadrant drain output is bloody serous. Drain site is dry. Objective Data Vital Signs Vital Signs: Vital Signs - 24 hr 06/20/24 15:53 06/20/24 20:00 06/20/24 20:44 Temperature 36.9 C 36.6 C Pulse Rate 91 94 Respiratory Rate 18 16 Blood Pressure 111/62 109/59 L Pulse Oximetry 96 96 Oxygen Delivery Room Air 06/21/24 05:11 06/21/24 09:10 Temperature 36.7 C Pulse Rate 98 Respiratory Rate 16 Blood Pressure 110/69 Pulse Oximetry 95 Oxygen Delivery Room Air Intake/Output Intake/Output: Intake & Output 06/18/24 06/19/24 06/20/24 06/21/24 23:59 23:59 23:59 23:59 Intake Total 1999 4110 2560 Output Total 195 1910 950 Balance 1805 2200 1610 Meds/Results Medications: Active Medications Generic Name Dose Route Start Last Admin Trade Name Freq PRN Reason Stop Dose Admin Acetaminophen 500 mg 06/19/24 18:08 Acetaminophen 500 Mg Tablet PO Q6H PRN Pain Rated 1-3 Allopurinol 100 mg 06/20/24 09:00 06/21/24 09:16 Allopurinol 100 Mg Tablet PO 100 mg DAILY SHY Administration Colchicine 0.6 - 1.2 mg 06/19/24 18:08 Colchicine 0.6 Mg Tablet PO PRN PRN Gout Enoxaparin Sodium 40 mg 06/20/24 09:00 06/21/24 09:16 Enoxaparin 40 Mg/0.4 Ml Syringe SUB-Q 40 mg DAILY SHY Administration Famotidine 20 mg 06/20/24 21:00 06/21/24 09:16 Famotidine 20 Mg Tablet PO 20 mg Q12HR SHY Administration Ibuprofen 800 mg in 200 mls @ 400 mls/hr 06/21/24 06:00 Caldolor 800 Mg/200 Ml IVPB Q6H PRN Pain Rated 1-3 Morphine Sulfate 2 mg 06/19/24 18:08 Morphine Sulfate (*Crx) 2 Mg/Ml Inj IV PUSH Q2H PRN Breakthrough Pain Rated 4-6 or NPO Morphine Sulfate 4 mg 06/19/24 18:08 Morphine Sulfate (*Crx) 4 Mg/Ml Inj IV PUSH Q2H PRN Breakthrough Pain Rated 7-10 or NPO Naloxone HCl 0.1 mg 06/19/24 18:08 Naloxone Hcl 0.4 Mg/Ml Vial IV PUSH Q2M PRN Opiate Reversal Ondansetron HCl 4 mg 06/19/24 18:08 06/21/24 12:14 Ondansetron Inj 4 Mg/2 Ml Vial IV PUSH 4 mg Q4H PRN Administration Nausea And Vomiting Oxycodone/Acetaminophen 1 tablet 06/19/24 18:08 06/21/24 06:06 Oxycodone/Acetaminophen (*Crx) 5-325 Mg Tablet PO 1 tablet Q4H PRN Administration Pain Rated 4-6 Oxycodone/Acetaminophen 1 tab 06/19/24 18:08 06/19/24 18:36 Oxycodone/Acetaminophen (*Crx) 10-325 Mg Tablet PO 1 tab Q6H PRN Administration Pain Rated 7-10 Polyethylene Glycol 17 gm 06/21/24 09:00 06/21/24 09:16 Polyethylene Glycol 3350 17 Gm Powd.Pack PO 17 gm QAM SHY Administration Senna/Docusate Sodium 2 tab 06/20/24 21:00 06/20/24 21:11 Senna/Docusate Sodium Tablet PO 2 tab HS SHY Administration Labs Labs: Laboratory Results - last 24 hr 06/21/24 04:53 WBC 11.7 H RBC 3.55 L Hgb 11.1 L Hct 33.3 L MCV 93.8 MCH 31.3 MCHC 33.3 RDW 13.4 Plt Count 194 MPV 10.2 Sodium 137 Potassium 3.8 Chloride 105 Carbon Dioxide 28 Anion Gap 4 BUN 10 Creatinine 0.90 Estim Creat Clear Calc 85 Estimated GFR > 60 Glucose 105 Calcium 8.1 L
[2024-06-21 16:00] VITALS: BP 145/91; PULSE 93; RESP 18; TEMP 36.8; O2SAT 94
[2024-06-21] MEDS: oxyCODONE/ACETAMINOPHEN (*CRX) 10-325 MG TABLET 1 TAB PO (16:16)
[2024-06-21 20:00] VITALS: BP 159/96; PULSE 100; RESP 16; TEMP 36.8; O2SAT 94
[2024-06-21 20:10] VITALS: PULSE 100; RESP 16; O2SAT 94
[2024-06-21] MEDS: SENNA/DOCUSATE SODIUM TABLET 2 TAB PO (20:12)
[2024-06-21 23:36] VITALS: BP 164/99; PULSE 100; RESP 16; TEMP 36.6; O2SAT 100
[2024-06-22] VITALS (8 sets, daily range): BP systolic 110–158; BP diastolic 78–90; PULSE 93–111; RESP 16–18; TEMP 36.6–37.7; O2SAT 93–95
[2024-06-22] MEDS: oxyCODONE/ACETAMINOPHEN (*CRX) 10-325 MG TABLET 1 TAB PO (03:02)
[2024-06-22] MEDS: ACETAMINOPHEN 500 MG TABLET PO (05:00)
[2024-06-22 05:29] LABS: Hematocrit 35.4 % (42.0-52.0); Mean Corpuscular HGB Conc 33.9 g/dl (32-36); Mean Corpuscular Hemoglobin 31.7 pg (26-34); Mean Corpuscular Volume 93.4 fl (80-100); Mean Platelet Volume 9.9 fl (7.4-10.4); Platelet Count Result 239 k/mm3 (150-375); Red Blood Count 3.79 M/mm3 (4.6-6.20); Red Cell Distribution Width 13.4 % (11.5-14.5); White Blood Count 14.2 K/mm3 (4.5-10.0)
[2024-06-22 05:34] LABS: Anion Gap 7 mmol/L (4-12); Blood Urea Nitrogen 12 mg/dL (9-20); Calcium 8.5 mg/dL (8.4-10.2); Carbon Dioxide 26 mmol/L (22-30); Chloride 102 mmol/L (98-107); Estimated CRCL calculation 97 ml/min; Estimated Glomerular Filt Rate > 60; Glucose 100 mg/dL (65-110); Potassium 3.9 mmol/L (3.4-5.0); Sodium 135 mmol/L (137-145)
[2024-06-22] MEDS: allopurinoL 100 MG TABLET PO (09:03)
[2024-06-22] MEDS: FAMOTIDINE 20 MG TABLET PO ×2 (09:03→20:22)
[2024-06-22] MEDS: polyethylene glycoL 3350 17 GM POWD.PACK PO (09:04)
[2024-06-22] MEDS: ONDANSETRON INJ 4 MG/2 ML VIAL IV PUSH ×2 (09:06→14:30)
[2024-06-22] MEDS: ENOXAPARIN 40 MG/0.4 ML SYRINGE SUB-Q (09:12)
--- NOTE | 2024-06-22 10:57 | P.PN_ITS ---
Progress Note: A&P Assessment and Plan (1) Incisional hernia without obstruction or gangrene: Code(s): K43.2 - Incisional hernia without obstruction or gangrene Status: Chronic Assessment and Plan: Likely has a postoperative ileus. Continue to ambulate in the hallways and sitting up in chair. KUB today shows dilated loops of small bowel. Will order suppository to see if we can stimulate bowel function. Continue to try decreased use of narcotics. Continue supportive management. Will add some Mylanta for his acid reflux. Subjective Date/time seen: 06/22/24 10:57 Interval history: Patient has not been eating much the last 12hours. He was bloated last night had small volume emesis. He seems to think it was due to his acid reflux and he feels much better after getting some Protonix. No bowel movement. KUB this morning shows dilated loops of small bowel likely consistent with a postoperative ileus. This morning he does feel less distended. He wants to get up walk around the hallways. Exam GI: Other: Abdomen is mildly distended. Incision dressed and dry. Left lower quadrant drain in place with serosanguineous output. Expected tenderness to palpation. Objective Data Vital Signs Vital Signs: Vital Signs - 24 hr 06/21/24 12:00 06/21/24 16:00 06/21/24 20:00 Temperature 37.1 C 36.8 C 36.8 C Pulse Rate 89 93 100 Respiratory Rate 20 18 16 Blood Pressure 135/89 145/91 H 159/96 H Pulse Oximetry 96 94 94 Oxygen Delivery 06/21/24 20:10 06/21/24 23:36 06/22/24 04:00 Temperature 36.6 C 37.7 C H Pulse Rate 100 100 95 Respiratory Rate 16 16 18 Blood Pressure 164/99 H 158/90 H Pulse Oximetry 94 100 93 Oxygen Delivery Room Air 06/22/24 05:00 06/22/24 06:05 06/22/24 09:03 Temperature 37.7 C H 37.5 C Pulse Rate Respiratory Rate Blood Pressure Pulse Oximetry Oxygen Delivery Room Air 06/22/24 09:46 Temperature 36.6 C Pulse Rate 111 H Respiratory Rate 16 Blood Pressure 142/89 H Pulse Oximetry 95 Oxygen Delivery Intake/Output Intake/Output: Intake & Output 06/19/24 06/20/24 06/21/2409/25 23:59 23:59 23:59 23:59 Intake Total 1999 4110 2560 250 Output Total 195 1910 1450 Balance 1805 2200 1110 250 Meds/Results Medications: Active Medications Generic Name Dose Route Start Last Admin Trade Name Freq PRN Reason Stop Dose Admin Acetaminophen 500 mg 06/19/24 18:08 06/22/24 05:00 Acetaminophen 500 Mg Tablet PO 500 mg Q6H PRN Administration Pain Rated 1-3 Allopurinol 100 mg 06/20/24 09:00 06/22/24 09:03 Allopurinol 100 Mg Tablet PO 100 mg DAILY SHY Administration Bisacodyl 10 mg 06/22/24 10:54 Bisacodyl 10 Mg Suppository RECTAL 06/22/24 10:55 ONCE ONE Colchicine 0.6 - 1.2 mg 06/19/24 18:08 Colchicine 0.6 Mg Tablet PO PRN PRN Gout Enoxaparin Sodium 40 mg 06/20/24 09:00 06/22/24 09:12 Enoxaparin 40 Mg/0.4 Ml Syringe SUB-Q 40 mg DAILY SHY Administration Famotidine 20 mg 06/20/24 21:00 06/22/24 09:03 Famotidine 20 Mg Tablet PO 20 mg Q12HR SHY Administration Ibuprofen 800 mg in 200 mls @ 400 mls/hr 06/21/24 06:00 Caldolor 800 Mg/200 Ml IVPB Q6H PRN Pain Rated 1-3 Morphine Sulfate 2 mg 06/19/24 18:08 Morphine Sulfate (*Crx) 2 Mg/Ml Inj IV PUSH Q2H PRN Breakthrough Pain Rated 4-6 or NPO Morphine Sulfate 4 mg 06/19/24 18:08 Morphine Sulfate (*Crx) 4 Mg/Ml Inj IV PUSH Q2H PRN Breakthrough Pain Rated 7-10 or NPO Naloxone HCl 0.1 mg 06/19/24 18:08 Naloxone Hcl 0.4 Mg/Ml Vial IV PUSH Q2M PRN Opiate Reversal Ondansetron HCl 4 mg 06/19/24 18:08 06/22/24 09:06 Ondansetron Inj 4 Mg/2 Ml Vial IV PUSH 4 mg Q4H PRN Administration Nausea And Vomiting Oxycodone/Acetaminophen 1 tablet 06/19/24 18:08 06/21/24 06:06 Oxycodone/Acetaminophen (*Crx) 5-325 Mg Tablet PO 1 tablet Q4H PRN Administration Pain Rated 4-6 Oxycodone/Acetaminophen 1 tab 06/19/24 18:08 06/22/24 03:02 Oxycodone/Acetaminophen (*Crx) 10-325 Mg Tablet PO 1 tab Q6H PRN Administration Pain Rated 7-10 Polyethylene Glycol 17 gm 06/21/24 09:00 06/22/24 09:04 Polyethylene Glycol 3350 17 Gm Powd.Pack PO 17 gm QAM [facility] Administration Senna/Docusate Sodium 2 tab 06/20/24 21:00 06/21/24 20:12 Senna/Docusate Sodium Tablet PO 2 tab HS SHY Administration Labs Labs: Laboratory Results - last 24 hr 06/22/24 04:48 WBC 14.2 H RBC 3.79 L Hgb 12.0 L Hct 35.4 L MCV 93.4 MCH 31.7 MCHC 33.9 RDW 13.4 Plt Count 239 MPV 9.9 Sodium 135 L Potassium 3.9 Chloride 102 Carbon Dioxide 26 Anion Gap 7 BUN 12 Creatinine 0.78 Estim Creat Clear Calc 97 Estimated GFR > 60 Glucose 100 Calcium 8.5
[2024-06-22] MEDS: BISACODYL 10 MG SUPPOSITORY RECTAL (14:25)
[2024-06-22] MEDS: SENNA/DOCUSATE SODIUM TABLET 2 TAB PO (20:22)
[2024-06-23] MEDS: MELATONIN 3 MG TABLET PO (00:08)
[2024-06-23 03:51] VITALS: BP 123/80; PULSE 91; RESP 17; TEMP 36.9; O2SAT 94
[2024-06-23 06:26] LABS: Hematocrit 35.2 % (42.0-52.0); Hemoglobin 12.1 g/dL (14.0-18.0); Mean Corpuscular HGB Conc 34.4 g/dl (32-36); Mean Corpuscular Volume 93.1 fl (80-100); Mean Platelet Volume 9.6 fl (7.4-10.4); Platelet Count Result 255 k/mm3 (150-375); Red Blood Count 3.78 M/mm3 (4.6-6.20); Red Cell Distribution Width 13.2 % (11.5-14.5); White Blood Count 7.7 K/mm3 (4.5-10.0)
[2024-06-23 06:43] LABS: Anion Gap 8 mmol/L (4-12); Blood Urea Nitrogen 15 mg/dL (9-20); Calcium 8.4 mg/dL (8.4-10.2); Carbon Dioxide 28 mmol/L (22-30); Chloride 99 mmol/L (98-107); Estimated CRCL calculation 81 ml/min; Estimated Glomerular Filt Rate > 60; Glucose 104 mg/dL (65-110); Potassium 3.5 mmol/L (3.4-5.0); Sodium 135 mmol/L (137-145)
[2024-06-23] MEDS: ENOXAPARIN 40 MG/0.4 ML SYRINGE SUB-Q (08:23)
[2024-06-23] MEDS: FAMOTIDINE 20 MG TABLET PO (08:24)
[2024-06-23] MEDS: polyethylene glycoL 3350 17 GM POWD.PACK PO (08:24)
[2024-06-23] MEDS: allopurinoL 100 MG TABLET PO (08:24)
--- NOTE | 2024-06-23 08:28 | P.DS_ITS ---
DS: Admitting Diagnosis Discharge Date 06/23/2024 Admitting Diagnosis * incisional hernias * history bowel resection * gout DS: Discharge Diagnosis Discharge Diagnosis (1) Incisional hernia without obstruction or gangrene: Code(s): K43.2 - Incisional hernia without obstruction or gangrene Status: Chronic Assessment and Plan: incisional hernia repair with mesh, bilateral transversus abdominis myofascial flap advancement 06/19/[address] Maier (2) History of bowel resection: Code(s): Z90.49 - Acquired absence of other specified parts of digestive tract Status: Chronic (3) Gout, unspecified: Qualifiers: Chronicity: chronic Gout etiology: unspecified cause Gout site: multiple sites Qualified Code(s): M1A.09X0 - Idiopathic chronic gout, multiple sites, without tophus (tophi) Code(s): M10.9 - Gout, unspecified Status: Chronic DS: Summary Hospital Course Hospital Course: patient underwent an ileocolic resection for an inflammatory process at an outside hospital in October of 2023. This was done through a midline skin incision and was left open to heal secondarily. He developed multiple incisional hernias in the previous surgical site. After discussion he was taken to surgery on 06/19/2024 and underwent open incisional hernia repair with mesh, bilateral transversus abdominis myofascial flap advancement was performed as well. The hernia defect was over 15 cm and there were multiple holes in the previous scar. Postoperatively, the patient did well. He tolerated liquids and was advanced to soft and then solid food. He gradually required only occasional oral pain medication. He was ambulatory and bowels were moving on postoperative day 4. His MARCO drain was removed on postop day number for and he was able to be discharged in good condition. He had 250 cc these of intraoperative blood loss but H&H dropped postoperatively but remained stable. On the day of discharge urge his see hemoglobin was 12.1 and hematocrit was 35.2. Status at Discharge Functional status at discharge: independent ambulation Overall status at discharge: patient is progressing back to baseline Time Spent with Patient Time attestation: Total time spent providing and/or coordinating discharge services: Time spent: Less than 30 minutes DS: Data Data Completed and Pending Labs on day of discharge: Labs from last 24 hours 06/23/24 05:49 WBC 7.7 RBC 3.78 L Hgb 12.1 L Hct 35.2 L MCV 93.1 MCH 32.0 MCHC 34.4 RDW 13.2 Plt Count 255 MPV 9.6 Sodium 135 L Potassium 3.5 Chloride 99 Carbon Dioxide 28 Anion Gap 8 BUN 15 Creatinine 0.95 Estim Creat Clear Calc 81 Estimated GFR > 60 Glucose 104 Calcium 8.4 Discharge Plan Discharge Attending physician on discharge: Damian Maier Discharging Clinician: Damian Maier Anticipated Discharge Date/Time: 06/23/24 08:36 Patient Disposition: Home, Self-Care Activity: may shower, no straining and as tolerated Diet: regular Wound Care Instructions: keep dressing dry, remove dressing to shower, change dressing daily and other - see discharge instructions Discharge Instructions: * Ambulate 3-4 x per day and as tolerated. * No lifting over 15-20lbs. * May bathe or shower. * Stairs are OK. * May drive a car in 3 days. * Remove any dressings before shower and replace after. * Okay to discontinue dressing changes on Sunday06/27/2024. Leave wounds open then. * Dressings include dry gauze and Medipore tape over incision and drain site. * Call Dr. Maier or go to the emergency room if you experience severe pain, persistent bleeding, vomiting, temp over 101?, or other significant change in condition. Patient Instructions: Antibiotic Form Patient Language: Azerbaijani Stand Alone Forms: General Discharge Information Follow-up/Referrals: Damian Maier MD [Physician] - Keep Reg. Scheduled Appt. Discharge Medications: New polyethylene glycol 3350 [Miralax] 17 gram Powder In Packet 17 g PO QAM Qty: 7 0RF sennosides-docusate sodium [Senokot-S] 8.6-50 mg Tablet 2 tab PO HS Qty: 8 0RF oxycodone-acetaminophen [Percocet] 5-325 mg tablet 0.5 - 1 tablet PO Q4H PRN (Reason: pain) Qty: 10 0RF Continued colchicine 0.6 mg tablet 1.2 mg PO ONCE PRN (Reason: Gout) Qty: 15 1RF Rx Instructions: 1.2 mg at onset of gout flare, then 0.6 mg x 1 1 hr later. Max 1.8 mg total dose.Do not repeat for 3days Tart Kim Extract 1,000 mg capsule 1,000 mg PO DAILY allopurinol 100 mg tablet 100 mg PO DAILY Qty: 90 1RF Date of admission: 06/20/24 11:41 Primary Care Provider: Jordy Dee Admitting Provider: Damian Maire Attending physician on admission: Damian Maier Condition: Improved
== END 2024-06-23 10:52 | disposition home or self-care (01) | DRG 354 ==
LOC: ANHSURGERY 11:45 → ANH2MED 11:45
PROVIDERS: Admitting Provider Surgery; PCP Family Medicine; Visit Provider Surgery
PROC: 0WQF0ZZ Repair Abdominal Wall, Open Approach (ICD-10-PCS; principal; 2024-06-19 12:00)
DX: K43.2 Incisional hernia without obstruction or gangrene (principal); K56.7 Ileus, unspecified; K91.89 Other postprocedural complications and disorders of digestive system; M1A.09X0 Idiopathic chronic gout, multiple sites, without tophus (tophi); Z90.49 Acquired absence of other specified parts of digestive tract
CPT/HCPCS: 36415; 74018; 80048; 85027; A9270; C1781; J0690; J1100; J1596; J1650; J1741; J1885; J2250; J2270; J2371; J2405; J2704; J2710; J3010; J3480; J7120

== ENCOUNTER 2025-05-04 01:01 | Day surgery (SDC) | payer OTHER, SELFPAY ==
[2025-04-17 08:31] VITALS: BMI 29.5
[2025-05-04 09:44] VITALS: BP 115/79; PULSE 94; RESP 16; TEMP 36.4; O2SAT 97; BMI 28.8
[2025-05-04] MEDS: LACTATED RINGERS 1,000 ML 150 ML IV CONT (09:53)
--- NOTE | 2025-05-04 10:51 | WPDANESEPPF ---
Anes - Initial Pre Proc Eval Procedure: Operation Date: 05/04/25 11:00 Proposed Procedures p Diagnostic Colonoscopy - Ramírez Nunez MD Date/Time: 05/04/25 10:51 Surgeon: Ramírez Nunez MD Pre Op Diagnosis: Acquired absence of other specified parts Patient Data Age: 54 Gender: M Height: 1.75 m Weight: 88.7 kg Last Vital Signs Temp 36.4 C L 05/04/25 09:44 Pulse 94 05/04/25 09:44 Resp 16 05/04/25 09:44 BP 115/79 05/04/25 09:44 Pulse Ox 97 05/04/25 09:44 O2 Del Method Room Air 05/04/25 09:44 Allergies Allergy/AdvReac Type Severity Reaction Status Date / Time No Known Allergies Allergy Verified 04/17/25 08:29 Home Medications ?Medication ?Instructions ?Recorded ?Confirmed ?Type colchicine 0.6 mg tablet 1.2 mg (2 x 0.6 mg) PO ONCE PRN 03/28/22 04/17/25 Rx Gout #15 tabs sour kim extract 1,000 mg 1,000 mg PO DAILY 06/10/24 05/04/25 History capsule (Tart Kim Extract) allopurinol 100 mg tablet See Rx Instructions .Route 03/09/25 05/04/25 Rx .COMPLEX #90 tabs tirzepatide (weight loss) 5 mg/0.5 5 mg (0.5 mL) subcut WEEKLY #2 mL 03/10/25 05/04/25 Rx mL subcutaneous pen injector (Zepbound) Patient hx anesthesia problems: none Family hx anesthesia problems: none Results Review: All pre-operative results and documents have been reviewed as part of the pre-operative evaluation. [facility] Past Medical History Medical History Gallbladder disorder Fatty liver BMI 29.0-29.9,adult BMI 30.0-30.9,adult Right otitis media Cerumen impaction Surgical History Surgical History History of incisional hernia repair 06/19/24 Incisional hernia repair with mesh, bilateral transversus abdominis myofascial flap advancement, 6 cm on the right, 4 cm on the left Dr. Maier Hx laparoscopic cholecystectomy 04/29/[address] Maier History of bowel resection 2023 Family History Family History Mother Family history of lung cancer Lung cancer Father Aortic aneurysm Sibling No problems noted. Social History Social History Smoking status: Never smoker Second hand tobacco smoke exposure: No Alcohol intake: current Drinks per week: 5 Substance use: never Substance use type: does not use Lack of Transportation: No Lack of Food: Never True Current Housing: I Have Housing Concerned About Future Housing: No Difficulty Paying Gas/Electric Bills: No Difficulty Paying for Meds: No Currently Unemployed: No Education: Master's Degree or Higher Difficulty w/ Childcare or Family Care: No Living arrangements: with family Occupation/Education: occupation Additional occupation/education comments: financial services Gender identity (if verbalized by the patient): Male Spiritual care concerns: No Anes - Eval Final PreProcedure Day of Procedure 05/04/25 10:51 Patient weight: overweight Heart: regular rate and rhythm Lungs: clear to auscultation Airway: Mallampati scale class II Neurological: alert and oriented Last oral intake: >/= 8 hours ASA classification: III Emergent: no Anesthetic plan: proceed Anesthesia type and monitoring: general GIVS and standard monitoring Results Review: All pre-operative results and documents have been reviewed as part of the pre-operative evaluation. Informed Consent: The patient's anesthetic plan and its attendant risks and benefits were discussed with the patient/family/POA. Questions were solicited and answers provided to the satisfaction of the patient/family/POA.
--- NOTE | 2025-05-04 10:52 | PM.HPGS ---
History of Present Illness History of Present Illness Consent: Risks, benefits, and alternatives have been discussed and questions answered. Patient agrees to proceed with procedure. Chief complaint: Acquired absence of other specified parts Narrative: Eddi Corrales is a 54 year old male here for another colonoscopy, last one 2016 normal but he had partial colectomy in October 2023 for bowel perforation which was performed emergently at [facility] in [place], [place] (etiology unknown), no acute issues now. His surgeon recommended to repeat another colonoscopy. Review of Systems Review of Systems: All systems reviewed & are unremarkable except as noted in HPI and below PMFSH Past Medical History Medical History (Updated 05/04/25 @ 10:54 by Ramírez Nunez MD) Colon cancer screening Gallbladder disorder Fatty liver BMI 29.0-29.9,adult BMI 30.0-30.9,adult Right otitis media Cerumen impaction Surgical History Surgical History History of incisional hernia repair 06/19/24 Incisional hernia repair with mesh, bilateral transversus abdominis myofascial flap advancement, 6 cm on the right, 4 cm on the left Dr. Maier Hx laparoscopic cholecystectomy 04/29/[address] Maier History of bowel resection 2023 Family History Family History Mother Family history of lung cancer Lung cancer Father Aortic aneurysm Sibling No problems noted. Social History Social History Smoking status: Never smoker Second hand tobacco smoke exposure: No Alcohol intake: current Drinks per week: 5 Substance use: never Substance use type: does not use Lack of Transportation: No Lack of Food: Never True Current Housing: I Have Housing Concerned About Future Housing: No Difficulty Paying Gas/Electric Bills: No Difficulty Paying for Meds: No Currently Unemployed: No Education: Master's Degree or Higher Difficulty w/ Childcare or Family Care: No Living arrangements: with family Occupation/Education: occupation Additional occupation/education comments: financial services Gender identity (if verbalized by the patient): Male Spiritual care concerns: No Meds Home Medications and Allergies Home Medications ?Medication ?Instructions ?Recorded ?Confirmed ?Type colchicine 0.6 mg tablet 1.2 mg (2 x 0.6 mg) PO ONCE PRN 03/28/22 04/17/25 Rx Gout #15 tabs sour ikm extract 1,000 mg 1,000 mg PO DAILY 06/10/24 05/04/25 History capsule (Tart Kim Extract) allopurinol 100 mg tablet See Rx Instructions .Route 03/09/25 05/04/25 Rx .COMPLEX #90 tabs tirzepatide (weight loss) 5 mg/0.5 5 mg (0.5 mL) subcut WEEKLY #2 mL 03/10/25 05/04/25 Rx mL subcutaneous pen injector (Zepbound) Allergies Allergy/AdvReac Type Severity Reaction Status Date / Time No Known Allergies Allergy Verified 04/17/25 08:29 Vital Signs Vital Signs - 24 hr 05/04/25 09:44 Temperature 97.5 F L Pulse Rate 94 Respiratory Rate 16 Blood Pressure 115/79 Pulse Oximetry 97 Oxygen Delivery Room Air Exam Const: General: comfortable and no acute distress HENMT: Face/Nose/Sinus: Normal nares present Eyes: General: appearance normal, both eyes and all related structures Neck: Neck: no JVD Resp: Auscultation: clear to auscultation bilaterally Cardio: Rate: regular rate Rhythm: regular rhythm GI: Inspection: non-distended GI Palp: Yes Soft to palpation Skin: General skin exam: normal color Psych: Mental Status: mental status grossly normal Assessment and Plan Assessment and plan (1) History of bowel resection: Code(s): Z90.49 - Acquired absence of other specified parts of digestive tract Status: Chronic (2) Colon cancer screening: Code(s): Z12.11 - Encounter for screening for malignant neoplasm of colon Status: Acute Assessment and Plan: colonoscopy
[2025-05-04 11:08] VITALS: BP 105/76; PULSE 88; RESP 20; O2SAT 96
[2025-05-04 11:18] VITALS: BP 109/72; PULSE 95; RESP 17; O2SAT 95
[2025-05-04 11:28] VITALS: BP 122/88; PULSE 96; RESP 19; O2SAT 96
== END 2025-05-04 11:37 | disposition home or self-care (01) ==
PROVIDERS: PCP Family Medicine; Referring Provider Nurse Practitioner; Visit Provider Internal Medicine Gastroenterology
PROC: 0DJD8ZZ Inspection of Lower Intestinal Tract, Via Natural or Artificial Opening Endoscopic (ICD-10-PCS; CPT 45378; principal; 2025-05-04 11:00)
DX: Z12.11 Encounter for screening for malignant neoplasm of colon (principal); K57.30 Diverticulosis of large intestine without perforation or abscess without bleeding; K64.8 Other hemorrhoids; Z90.49 Acquired absence of other specified parts of digestive tract; Z98.0 Intestinal bypass and anastomosis status; Z87.19 Personal history of other diseases of the digestive system
CPT/HCPCS: 45378; J2704; J7120